=== PATIENT | female | born 1955 | race Caucasian/White ===

== ENCOUNTER 2019-05-06 02:02 | Inpatient (IN) ==
[2019-05-06] MEDS ORDERED: VANCOMYCIN 1 GM/NS 1 GM/250 ML IVPB IV ONE (02:25)
[2019-05-06] MEDS ORDERED: NS 1,000 ML IV ONE ×2 (02:25→06:51)
[2019-05-06] MEDS ORDERED: ZOSYN 4.5 GM in NS 100 ML IV ONE (02:25)
--- NOTE | 2019-05-06 02:26 | PROVIDER DOCUMENTATION ---
HPI-Respiratory General - General Chief Complaint: General Adult Stated Complaint: low o2 sat Time Seen by Provider: 05/06/19 02:16 Source: patient, EMS, [facility] records Allergies/Adverse Reactions: Patient Allergies Allergy/AdvReac Type Severity Reaction Status Date / Time amoxicillin [From Augmentin] Allergy HIVES Verified 05/06/19 04:36 clavulanic acid Allergy HIVES Verified 05/06/19 04:36 [From Augmentin] Sulfa (Sulfonamide Allergy HIVES Verified 05/06/19 04:36 Antibiotics) Home Medications: Home Medication List Medication Instructions Recorded Confirmed Last Taken Type Aspirin [Adult Aspirin Regimen] 81 mg PO DAILY 05/06/19 05/06/19 Unknown History Carvedilol 3.125 mg PO BID 05/06/19 05/06/19 Unknown History Clonazepam [Klonopin] 0.5 mg PO BID 05/06/19 05/06/19 Unknown History Diclofenac 1% Gel [Voltaren 1% Gel] 2 g TOP Q12H PRN PRN 05/06/19 05/06/19 Unknown History Escitalopram [Lexapro] 20 mg PO DAILY 05/06/19 05/06/19 Unknown History Furosemide [Lasix] 20 mg PO DAILY 05/06/19 05/06/19 Unknown History Gabapentin 600 mg PO Q6HR 05/06/19 05/06/19 Unknown History Hydrocodone/Acetaminophen [Naselle 1 tab PO PRN PRN 05/06/19 05/06/19 Unknown History 7.5-325 Tablet] Ipratropium/Albuterol Sulfate 3 ml INH Q6HR 05/06/19 05/06/19 Unknown History [Iprat-Albut 0.5-3(2.5) mg/3 ml] LISINOpril [Prinivil] 5 mg PO DAILY 05/06/19 05/06/19 Unknown History Metformin [Glucophage] 500 mg PO BID 05/06/19 05/06/19 Unknown History Mirtazapine 15 mg PO QHS 05/06/19 05/06/19 Unknown History Montelukast [Singulair] 10 mg PO QHS 05/06/19 05/06/19 Unknown History Ondansetron HCl [Zofran] 4 mg PO Q6-8H PRN PRN 05/06/19 05/06/19 Unknown History Oxybutynin [Ditropan] 5 mg PO BID 05/06/19 05/06/19 Unknown History PRAVAstatin [Pravachol] 20 mg PO QHS 05/06/19 05/06/19 Unknown History Potassium Chloride [Klor-Con M20] 20 meq PO DAILY 05/06/19 05/06/19 Unknown History Promethazine [Phenergan] 25 mg IM Q6-8H PRN PRN MDD 75 05/06/19 05/06/19 Unknown History Zolpidem [Ambien] 10 mg PO QHS 05/06/19 05/06/19 Unknown History - History of Present Illness-Resp Nature of Presenting Problem: Presents to the [facility] from [place]. Per [facility] report patient called EMS and was hypoxic. Per EMS patient was hypoxic and her O2 tubing was found to be kinked. EMS miriam ged out the tubing and her SpO2 bumbped back up. Upon arrival the ED patient was hypotensive the 70 . Daughter works at [employer] and states that yesterday there was concern that she aspirated and they started her on O2 and antibiotics andwas giving her breathing treatments. She states that up until 1 week ago she was living in [place] and she just brought her here to live in the same [facility] she works at. She is a full code. Daughter is unclear of all her PMH but does know that she has been at risk for aspirating in the past and does have CHF. They state that she is acting slightly more altered than normal but she does answer questions normally. She also reports a history of CHF. Review of Systems - Adult - REVIEW OF SYSTEMS - ADULT ROS:: ROS per family Constitutional: reports: see HPI Eyes: reports: no symptoms reported Ears, Nose, Mouth & Throat: reports: no symptoms reported Cardiovascular: reports: no symptoms reported Respiratory: reports: see HPI, cough, shortness of breath, other Gastrointestinal: reports: no symptoms reported Genitourinary: reports: no symptoms reported Musculoskeletal: reports: no symptoms reported Integumentary: reports: no symptoms reported Neurological: reports: no symptoms reported Psychiatric: reports: no symptoms reported Endocrine: reports: no symptoms reported Hematologic/Lymphatic: reports: no symptoms reported Allergic/Immunologic: reports: no symptoms reported All Other Systems: Reviewed and Negative Past History - Adult - PAST MEDICAL HISTORY-ADULT Review of Records: denies: Old Records Reviewed (no records in EMR) Cardiovascular: reports: CHF, HTN, hyperlipidemia Respiratory: reports: COPD Gastrointestinal: reports: GERD Neurological: reports: Seizures/Epilepsy, other (dysthymic disorder) Psychiatric: reports: anxiety, other (insomnia) Endocrine/Immune: reports: Diabetes Diabetes Type: Type 2 - PRIOR SURGERIES/PROCEDURES Surgical/Procedure History: reports: hysterectomy - FAMILY HISTORY Family History: other (non contributory due to age) - SOCIAL HISTORY Smoking: cigarettes Substance Use: none/never Alcohol Use Frequency: never Living Situation: care facility Physical Exam-General - CONSTITUTIONAL General Appearance: alert, anxious, other (chronically ill appearing, older than stated age) - EYES Eyes: PERRL/EOMI - HEAD, EARS, NOSE, MOUTH & THROAT HENMT: normocephalic/atraumatic - NECK Neck: supple, normal inspection - RESPIRATORY Respiratory: no respiratory distress, decreased breath sounds, accessory muscle use, crackles, increased rate - CARDIOVASCULAR Cardiovascular: normal peripheral pulses, no murmur, tachycardia - GASTROINTESTINAL (ABDOMEN) Abdominal Exam: normal bowel sounds, non tender, soft - MUSCULOSKELETAL Back Exam: normal inspection Extremity: normal inspection, no pedal edema - SKIN Integumentary: warm/dry, pallor - NEUROLOGIC Neurologic: grossly normal - PSYCHIATRIC Psych/Mental Status: normal mood/affect, oriented x 3 Progress - PLAN OF CARE/RESULTS Progress/Plan/Lab Results: Vital Signs - 8 hr 05/06/19 02:10 Temperature 99.1 F Pulse Rate 104 H Respiratory Rate 28 H Blood Pressure 76/44 O2 Sat by Pulse Oximetry 100 05/06/19 05:00 Influenza Screen - Final Nasopharyngeal Laboratory Results - last 24 hr 05/06/19 05/06/19 05/06/19 00:50 02:35 03:50 WBC 7.88 RBC 3.07 L Hgb 9.2 L Hct 28.8 L MCV 93.8 MCH 30.0 MCHC 31.9 L RDW Std Deviation 14.4 Plt Count 185 MPV 10.3 Immature Gran % (Auto) 7.4 H Neut % (Auto) 58.5 Lymph % (Auto) 14.3 L Kay % (Auto) 19.4 H Eos % (Auto) 0.3 Baso % (Auto) 0.1 Immature Gran # (Auto) 0.58 H Neut # (Auto) 4.61 Lymph # (Auto) 1.13 L Kay # (Auto) 1.53 H Eos # (Auto) 0.02 Baso # (Auto) 0.01 Specimen Type ARTERIAL Sample Site R RADIAL pH 7.46 H pCO2 31 L pO2 50 L HCO3 23.9 Base Excess -1.1 Oxyhemoglobin 88.9 L* ABG O2 Sat (Calculated) 14.5 L ABG O2 Saturation 90.7 L ABG Carboxyhemoglobin 1.30 ABG Methemoglobin 0.7 Hua Test YES A-a O2 Difference 61.0 Total Hemoglobin 11.6 Lactate 4.10 H* Blood Gas Modality CANNULA FiO2 % 21.0 Sodium Potassium Chloride Carbon Dioxide Anion Gap BUN Creatinine Estimated GFR/1.73 m2 BUN/Creatinine Ratio Glucose Calculated Osmolality Calcium Total Bilirubin AST ALT Alkaline Phosphatase Troponin T High Sens Okk-T-Pvgajbgpvad Pept Total Protein Albumin Globulin Albumin/Globulin Ratio Plasma Lactate Urine Source CATH Urine Color YELLOW Urine Turbidity CLEAR Urine pH 5.5 Ur Specific Harrison 1.012 Urine Protein 50 A Ur Glucose (Stick) NEGATIVE Ur Ketones (Stick) NEGATIVE Urine Blood TRACE A Urine Nitrite NEGATIVE Urine Bilirubin NEGATIVE Urobilinogen Dipstick NORMAL Urine Leukocytes SMALL A Urine WBC (Auto) 10-20 A Urine RBC (Auto) <10 U Epithel Cells (Auto) <10 Urine Bacteria (Auto) 4+ 05/06/19 05/06/19 05/06/19 03:50 03:50 03:50 WBC RBC Hgb Hct MCV MCH MCHC RDW Std Deviation Plt Count MPV Immature Gran % (Auto) Neut % (Auto) Lymph % (Auto) Kay % (Auto) Eos % (Auto) Baso % (Auto) Immature Gran # (Auto) Neut # (Auto) Lymph # (Auto) Kay # (Auto) Eos # (Auto) Baso # (Auto) Specimen Type Sample Site pH pCO2 pO2 HCO3 Base Excess Oxyhemoglobin ABG O2 Sat (Calculated) ABG O2 Saturation ABG Carboxyhemoglobin ABG Methemoglobin Hua Test A-a O2 Difference Total Hemoglobin Lactate Blood Gas Modality FiO2 % Sodium 132 L Potassium 5.2 H Chloride 89 L Carbon Dioxide 22 L Anion Gap 21 BUN 53 H Creatinine 3.3 H Estimated GFR/1.73 m2 14 BUN/Creatinine Ratio 16 Glucose 137 H Calculated Osmolality 281 Calcium 7.5 L Total Bilirubin 0.60 AST 30 ALT 65 H Alkaline Phosphatase 57 Troponin T High Sens Jog-Y-Ebqevatxnxj Pept 93163 H Total Protein 6.1 L Albumin 3.2 L Globulin 2.9 Albumin/Globulin Ratio 1.1 Plasma Lactate 4.8 H* Urine Source Urine Color Urine Turbidity Urine pH Ur Specific Harrison Urine Protein Ur Glucose (Stick) Ur Ketones (Stick) Urine Blood Urine Nitrite Urine Bilirubin Urobilinogen Dipstick Urine Leukocytes Urine WBC (Auto) Urine RBC (Auto) U Epithel Cells (Auto) Urine Bacteria (Auto) 05/06/19 03:50 WBC RBC Hgb Hct MCV MCH MCHC RDW Std Deviation Plt Count MPV Immature Gran % (Auto) Neut % (Auto) Lymph % (Auto) Kay % (Auto) Eos % (Auto) Baso % (Auto) Immature Gran # (Auto) Neut # (Auto) Lymph # (Auto) Kay # (Auto) Eos # (Auto) Baso # (Auto) Specimen Type Sample Site pH pCO2 pO2 HCO3 Base Excess Oxyhemoglobin ABG O2 Sat (Calculated) ABG O2 Saturation ABG Carboxyhemoglobin ABG Methemoglobin Hua Test A-a O2 Difference Total Hemoglobin Lactate Blood Gas Modality FiO2 % Sodium Potassium Chloride Carbon Dioxide Anion Gap BUN Creatinine Estimated GFR/1.73 m2 BUN/Creatinine Ratio Glucose Calculated Osmolality Calcium Total Bilirubin AST ALT Alkaline Phosphatase Troponin T High Sens 48 H Dzg-S-Acuhjmubylv Pept Total Protein Albumin Globulin Albumin/Globulin Ratio Plasma Lactate Urine Source Urine Color Urine Turbidity Urine pH Ur Specific Harrison Urine Protein Ur Glucose (Stick) Ur Ketones (Stick) Urine Blood Urine Nitrite Urine Bilirubin Urobilinogen Dipstick Urine Leukocytes Urine WBC (Auto) Urine RBC (Auto) U Epithel Cells (Auto) Urine Bacteria (Auto) Orders Category Date Time Status Sanchez Cath Insertion ORDERED Care 05/06/19 05:01 Active CHEST-PORTABLE [RAD] Stat Exams 05/06/19 02:20 Taken ABG [RESP] Routine Lab 05/06/19 02:35 Completed BLOOD CULTURE [BLDCUL] Stat Lab 05/06/19 04:58 Received CBC WITH ELECTRONIC DIFF [HEME] Stat Lab 05/06/19 03:50 Completed COMPREHENSIVE METABOLIC PANEL [CHEM] Stat Lab 05/06/19 03:50 Completed INFLUENZA SCREEN A/B Stat Lab 05/06/19 05:00 Completed LACTATE, PLASMA [CHEM] Stat Lab 05/06/19 03:50 Received PRO B-NATRIURETIC PEPTIDE Stat Lab 05/06/19 03:50 Completed TROPONIN T HIGH SENSITIVITY Stat Lab 05/06/19 03:50 Completed URINALYSIS W/POSS RFLX CULT [URINALYSIS] Stat Lab 05/06/19 00:50 Completed URINE CULTURE [RM] Routine Lab 05/06/19 05:38 Ordered 0.9% Sodium Chloride Inj [Ns] 1,000 ml Med 05/06/19 02:25 Discontinued IV 999 mls/hr Acetaminophen [Tylenol] Med 05/06/19 05:37 Once 1,000 mg PO NOW ONE Piperacillin/Tazobactam [Zosyn] 4.5 gm Med 05/06/19 02:25 Discontinued 0.9% Sodium Chloride Inj [Ns] 100 ml IV NOW Vancomycin 1 gm/Ns Med 05/06/19 02:25 Discontinued 1 gm in 250 ml IV NOW Patient hypotensive upon arrival but states she always runs in the 90s. SHe mei es a lot of pain and sedating medications which likely causes her risk of hypotension and risk for aspiration. She does appear to have an infiltrate in the left lower lobe, and a UTI. Her BNP is elevated to 10k but she is also septic with tachycardia, tachypnea, and hypotension and fever so will give boluses and monitor SpO2. Will require admission. Spoke to Dr Diaz superintendent transmission for hospitalist who accepted patient for admission. Further orders to be placed per his team. Result Diagrams: 05/06/19 03:50 05/06/19 03:50 - XRAY 1 XRAY Study: Chest (left lower lobe infiltrate) - CONSULTS/PCP/HOSPITALIST Notification #1 *Consult/PCP/Hospitalist*: Dr Diaz Time Discussed: 05:38 Consult Disposition: Will see in ED, Admit Departure - Departure Date of Disposition Decision: 05/06/19 Time of Disposition Decision: 05:38 DIAGNOSIS: Pneumonia, Hypoxia, UTI (urinary tract infection), Hypotension, Congestive heart failure, Sepsis, Polypharmacy Disposition: ADMITTED INPATIENT 09 Certified Medical Emergency: Emergent Condition: Critical Referrals and Follow-Ups: Birgit Augustin MD [Primary Care Provider] - - Critical Care Note This patient required my direct & personal management of CC.: Yes Total Time (mins): 35 Critical Care Statement: This patient required my direct personal management to treat or rule out processes, the absence of which, could potentiallly result in sudden, clinically significant life or limb threatening deterioration. Attestation - Physician/ MESHA Attestation Patient care was provided by Advanced Practice Provider:: No The physician spent face to face time with patient:: Yes Advanced Practice Provider documentation review:: Supervising physician onsite and consulted in the evaluation and care of this patient. The physician did have a face to face encounter with the patient.
[2019-05-06 02:41] LABS: ALLEN TEST YES; BE -1.1 mmoll (-3.0-3.0); BLOOD TYPE ARTERIAL; HCO3-(ACT) 23.9 mmoll (20.0-26.0); METHB 0.7 % (0.0-1.5); O2(CT) 14.5 mL/dL (15.0-23.0); PCO2(98.6) 31 mmHg (35-45); PO2(98.6) 50 mmHg (60-100); SAMPLE BLOOD; SAO2 90.7 % (95.0-100.0); THB 11.6 g/dL (11.5-17.4); pH(98.6) 7.46 (7.35-7.45)
[2019-05-06 02:45] LABS: MODALITY CANNULA; O2HB 88.9 % (95.0-99.0)
[2019-05-06 04:04] LABS: BASO# 0.01 X1000 (0.0-0.2); BASO% 0.1 % (0.0-0.8); EOS# 0.02 X1000 (0.0-0.7); EOS% 0.3 % (0.0-10.0); HEMATOCRIT 28.8 % (37.0-47.0); HEMOGLOBIN 9.2 g/dL (12.0-16.0); IMM GRAN# 0.58 X1000 (0.0-0.04); IMM GRAN% 7.4 % (0.0-0.5); LYMPH# 1.13 X1000 (1.2-3.4); LYMPH% 14.3 % (20.5-51.1); MCHC 31.9 g/dL (33-37); MCV 93.8 FL (81-99); MONO# 1.53 X1000 (0.11-0.59); MONO% 19.4 % (1.7-9.3); MPV 10.3 FL (7.4-10.4); NEUT# 4.61 X1000 (1.4-6.5); NEUT% 58.5 % (42.2-75.2); PLT 185 X1000 (130-400); RBC 3.07 XMIL (4.2-5.4); RDW 14.4 % (11.5-14.5); WBC 7.88 X1000 (4.8-10.8)
[2019-05-06 05:25] LABS: URINE SOURCE CATH
[2019-05-06 05:30] LABS: BILIRUBIN URINE NEGATIVE (NEGATIVE); BLOOD URINE TRACE (NEGATIVE); COLOR YELLOW; GLUCOSE URINE NEGATIVE (NEGATIVE); KETONE URINE NEGATIVE (NEGATIVE); LEUKOCYTES URINE SMALL (NEGATIVE); NITRITE URINE NEGATIVE (NEGATIVE); PH URINE 5.5; PROTEIN URINE 50 mg/dL (NEGATIVE); SP GRAVITY URINE 1.012; TURBIDITY URINE CLEAR (CLEAR); UROBILINOGEN URINE NORMAL (NORMAL)
[2019-05-06 05:34] LABS: UR EPITHELIAL CELLS <10 /HPF (<10); URINE BACTERIA 4+ /HPF; URINE RBC <10 /HPF (<10)
[2019-05-06 05:35] LABS: ALB/GLOB RATIO 1.1; ALBUMIN 3.2 g/dL (3.5-5.0); CALCIUM 7.5 mg/dL (8.8-10.2); CREATININE 3.3 mg/dL (0.5-0.9); POTASSIUM 5.2 mmol/L (3.5-5.1); TOTAL BILIRUBIN 0.6 mg/dL (0.20-1.00); TOTAL PROTEIN 6.1 g/dL (6.3-8.3)
[2019-05-06] MEDS ORDERED: TYLENOL PO ONE (05:37)
[2019-05-06 06:13] LABS: UR AMPHETAMINES QUAL NONE DETECTED (NONE DETECT); UR BARBITUATES QUAL NONE DETECTED (NONE DETECT); UR BENZODIAZEPIN QUAL NONE DETECTED (NONE DETECT); UR CANNABINOIDS QUAL NONE DETECTED (NONE DETECT); UR COCAINE QUAL NONE DETECTED (NONE DETECT); UR METHADONE QUAL NONE DETECTED (NONE DETECT); UR OPIATES QUAL PRESUMPTIVE POSITIVE (NONE DETECT); UR OXYCODONE QUAL NONE DETECTED (NONE DETECT); UR PCP QUAL NONE DETECTED (NONE DETECT)
[2019-05-06] MEDS: TAMIFLU PO SCH ×3 (06:18→21:12)
[2019-05-06] MEDS ORDERED: ZOFRAN IV PRN (06:52)
--- NOTE | 2019-05-06 07:21 | HISTORY AND PHYSICAL ---
CHIEF COMPLAINT: Low O2 sat. HISTORY OF PRESENT ILLNESS: This is a 63-year-old female who came in from the residential. Apparently the residential called EMS related to hypoxia. Her 02 tubing was found to be kinked. EMS changed out the tubing and her SP02 came back up. She was hypotensive in the 70s on arrival in the ER. Apparently yesterday, there was some concern she had aspirated. They were starting her on breathing treatments. Until a week ago, she was living in [place] and they brought her to live in the same residential that she works at. The patient is a full code. The daughter was unclear of all of her past medical history but does know that she had been a risk for aspirating. She does have a history of congestive heart failure. The patient was altered upon arrival. She, according to the ER charting has a history that also contains hypertension, hyperlipidemia, COPD, GERD, insomnia, anxiety, diabetes type 2 and seizure disorder although this could not be confirmed with the patient as she is oriented only to person. Laboratory data and chest x-ray were obtained in the emergency room. She is influenza B positive as well as having a left lower lobe pneumonia. She will be admitted to ICU for further evaluation and treatment. PAST MEDICAL HISTORY: See HPI. PREVIOUS SURGICAL HISTORY: Hysterectomy. FAMILY HISTORY: This could not be obtained. SOCIAL HISTORY: I believe she has a history of cigarettes. No alcohol. No illicit drugs. She lives at a residential. ALLERGIES: To amoxicillin causing hives. Augmentin causing hives and sulfa antibiotics causing hives. HOME MEDICATIONS: 1. Diclofenac gel. 2. Furosemide 20 mg p.o. daily. 3. Neurontin 600 mg p.o. q.6. 4. [place] 7.5 p.r.n. 5. Lisinopril 5 mg p.o. daily. 6. Metformin 500 mg p.o. b.i.d. 7. Mirtazapine 15 mg p.o. at bedtime. 8. Singulair 10 mg p.o. at bedtime. 9. Zofran 4 mg p.o. q.6-8 p.r.n. 10.Ditropan 5 mg p.o. b.i.d. 11.Potassium chloride 20 mEq p.o. daily. 12.Phenergan 25 mg q.6-8 p.r.n. 13.Ambien 10 mg p.o. at bedtime. 14.Aspirin 81 mg p.o. daily. 15.Carvedilol 3.125 mg p.o. b.i.d. 16.Klonopin 0.5 mg p.o. b.i.d. 17.Lexapro 20 mg p.o. daily. 18.DuoNeb q.6 hours. 19.Pravastatin 20 mg p.o. at bedtime. REVIEW OF SYSTEMS: This cannot be fully obtained related to patient's mentation. PHYSICAL EXAMINATION: VITAL SIGNS: Temperature 99.1 degrees, pulse 104, respirations 28, blood pressure 76/44, oxygen saturation 100% on 4 liters nasal cannula. GENERAL: 63-year-old female chronically ill-appearing, looks older than stated age, lying in the ER stretcher. She is oriented only to person, in no acute distress. HEENT: Head is atraumatic, normocephalic. Pupils equal, round and reactive to light. Extraocular eye movements intact. Sclerae anicteric. Conjunctivae pale. Oral mucosa is moist. NECK: Supple. Trachea is midline. No cervical lymphadenopathy. No JVD. CARDIAC: S1, S2 appreciated. No murmurs, gallops, rubs. LUNGS: Crepitations noted throughout bilateral lung waterman, diminished. She is tachypneic. No rhonchi, wheezes, rales. Symmetric rise and fall of respirations. ABDOMEN: Soft, nondistended, nontender. Bowel sounds present in all 4 quadrants. Normoactive. No pulsatile mass. No organomegaly. EXTREMITIES: No cyanosis, clubbing or edema. 1+ pedal pulses bilaterally. GENITOURINARY: No bladder distention. Patient voids, otherwise deferred. NEUROLOGICAL: Oriented only to person. No focal motor deficits. Otherwise nonfocal examination. DIAGNOSTIC DATA: Chest x-ray shows a left lower lobe pneumonia. LABORATORY DATA: WBC 7.88, hemoglobin 9.2, hematocrit 28.8, platelet count 185,000. ABG, pH 7.46, PCO2 31, PO2 50, bicarb 23.9. Sodium 132, potassium 5.2, chloride 89, carbon dioxide 22, BUN 53, creatinine 3.3, glucose 137. Plasma lactate 4.8. Urine leuko esterase is positive 10-20 WBCs, 4+ bacteria. ASSESSMENT AND PLAN: 1. Pneumonia. 2. Influenza B. 3. Urinary tract infection. 4. Acute hypoxic respiratory failure. 5. Acute kidney injury. 6. Congestive heart failure. 7. Hypotension. 8. History of hypertension. 9. Diabetes mellitus type 2. PLAN: Place patient in the ICU. Start Levophed if necessary. Sepsis protocol has been initiated. She was given fluids in the emergency room, continue at 60 mL an hour. Will be mindful not to overload the patient and she apparently does have a history of congestive heart failure. Will not continue Lasix, antihypertensives, metformin at this time. We will place on sliding scale insulin and fingerstick blood sugars. We will start Tamiflu. Sanchez catheter. Bedrest with physical therapy. Recheck laboratory data. Place the patient on Zosyn as she had a dose in the emergency room and did not have any negative effects despite having a previous history of allergy to amoxicillin. We will also place her on Zyvox 600 mg IV q.12 hours. Further recommendations per the patient's clinical course. Dictated by KELBY Swain for Farzad Diaz MD I have performed a face to face diagnostic evaluation. Labs/xrays- reviewed. Exam: Chest- rhonchi, CV- regular. A/P- Pneumonia, Influenza B- Admit, check blood cultures, IV ABX, Tamiflu. Dr. Diaz cc: KELBY Swain MD [facility]
--- NOTE | 2019-05-06 07:31 | Diag Imaging Result Doc PS360 ---
EXAM: CHEST-PORTABLE HISTORY: sob TECHNIQUE: Single view COMPARISON: No comparison films FINDINGS: There are infiltrates and atelectasis in the left lung base with a small left pleural effusion. Heart is borderline mildly prominent. Mild vascular distention. The patient is rotated to the right. IMPRESSION: Infiltrates in the left base with atelectasis and small left pleural effusion. Follow-up PA and lateral recommended. Electronically signed by Aron Cadena 05/06/2019 7:29 AM
[2019-05-06] MEDS: HEPARIN SUBQ SCH ×3 (08:13→23:55)
[2019-05-06] MEDS ORDERED: TAMIFLU PO SCH (09:00)
[2019-05-06] MEDS ORDERED: ZOSYN 2.25 GM in NS 50 ML IV SCH (09:00)
[2019-05-06] MEDS: LEVOPHED 8 MG in D5 1/2 NS 250 ML IV SCH (09:06)
[2019-05-06] MEDS: ZYVOX 600 MG/D5W 600 MG/300 ML IVPB IV SCH ×2 (09:06→21:10)
[2019-05-06] MEDS: NS 1,000 ML IV SCH (09:07)
[2019-05-06] MEDS: HUMALOG SUBQ SCH ×4 (10:10→21:11)
[2019-05-06] MEDS: COREG PO SCH ×2 (10:11→21:11)
[2019-05-06] MEDS: KLONOPIN PO SCH ×2 (10:11→21:12)
[2019-05-06] MEDS: ASPIRIN EC PO SCH (10:11)
[2019-05-06] MEDS: LEXAPRO PO SCH (10:12)
--- NOTE | 2019-05-06 14:29 | PROGRESS NOTE ---
DATE: 05/06/2019 SUBJECTIVE: Patient has no major complaints. OBJECTIVE: Blood pressure is 114/65, heart rate of 82, respiratory rate is 17, 98%--I think she is on a non-rebreather, T-max 100.8 degrees.Cardiovascular: Soft S1-S2. Pulmonary: She has diffuse rhonchi, a lot of that is upper airway noise, but she is moving air throughout. GI: Soft, nontender, nondistended. Bowel sounds are positive. LABORATORY DATA: I do not have any new data since 6 a.m. except her lactate has come down to 2.6. Her proBNP is very high, but she also has a creatinine of 3.3. PROBLEM LIST: 1. Acute hypoxic respiratory failure due to pulmonary edema, pneumonia, influenza B. She is still on very high dose oxygen and will repeat her ABG and follow. I think also we probably will need a Pulmonary consult because I think her risk of decompensation is high. I am not sure if there is an aspiration issue. 2. Acute kidney injury or possibly acute on chronic, it is difficult to tell. We will continue gentle hydration. She is on vasopressors which we are titrating off. 3. Congestive heart failure. Reportedly, she has a history of congestive heart failure. We will get an echo because we have no data on her previously, so I do not really have any baseline information. She is on Coreg which suggests she possibly does have congestive heart failure. We will be cautious with fluid resuscitation. 4. Putative pneumonia. She is on Zosyn and Zyvox. We will continue those for the time being. She is allergic to amoxicillin and Augmentin, I may switch her to cefepime and follow. Get a speech evaluation and proton pump inhibitor for GERD prophylaxis, and follow. This is a 32 minute critical care note septic shock, acute respiratory failure. Prognosis is still very guarded. cc: Jone Richard MD
[2019-05-06] MEDS: DUONEB (A & A) INH SCH ×3 (14:50→21:28)
[2019-05-06 15:04] LABS: ALLEN TEST YES; BLOOD TYPE ARTERIAL; HCO3-(ACT) 24.1 mmoll (20.0-26.0); METHB 0.3 % (0.0-1.5); O2(CT) 16.9 mL/dL (15.0-23.0); O2HB 96.4 % (95.0-99.0); PCO2(98.6) 42 mmHg (35-45); PO2(98.6) 91 mmHg (60-100); SAMPLE BLOOD; SAO2 97.4 % (95.0-100.0); THB 12.4 g/dL (11.5-17.4); pH(98.6) 7.37 (7.35-7.45)
[2019-05-06 15:05] LABS: MODALITY NRB
[2019-05-06] MEDS: MAXIPIME 1 GM in NS 50 ML IV SCH (16:12)
[2019-05-06] MEDS: MUCOMYST 20% PO SCH ×2 (16:13→16:43)
[2019-05-06] MEDS: PROTONIX IV SCH (16:15)
[2019-05-06 17:30] LABS: UR CREAT RANDOM 33.6 mg/dL (11-20); UR PROT RANDOM 36.4 mg/dL
[2019-05-06] MEDS ORDERED: NUBAIN IV PRN (17:39)
[2019-05-06] MEDS: OFIRMEV 1000 MG/ISOTONIC SOLN 1,000 MG/100 ML BOTTLE IV PRN (17:56)
--- NOTE | 2019-05-06 19:52 | PULMONOLOGY CONSULTATION ---
DATE: 05/06/2019 REQUESTING CLINICIAN: Dr. Cody Richard. REASON FOR CONSULTATION: Pneumonia. HISTORY OF PRESENT ILLNESS: Ms. Yen is a 63-year-old white female with diabetes mellitus, ongoing tobacco use, who was recently living in another city. She was recently brought [facility] where her daughter works. The patient had an episode of aspiration yesterday, and she has had history of aspiration in the past. She was brought to the emergency room for evaluation. She had evidence of acute hypoxemic respiratory failure, left lower lobe pneumonia, and she was flu swab-positive. PAST MEDICAL HISTORY: 1. History of aspiration. 2. Tobacco use up until a few days prior to admission. Family denies history of COPD. 3. Diabetes mellitus. 4. Anxiety disorder. 5. Possible seizure disorder. 6. Peripheral neuropathy. 7. Anxiety/depressive disorder. SOCIAL HISTORY: The patient was [facility] the [facility] as per above. She was smoking prior to admission. FAMILY HISTORY: Noncontributory to the current presentation. REVIEW OF SYSTEMS: Notable for cough, shortness of breath, sputum production, generalized aches and pains. PHYSICAL EXAMINATION: Physical exam reveals an overweight white female resting comfortably. She does have audible rhonchi with limited air flow on cough. Objective: Maximum temperature during this hospitalization is 100.8 degrees, blood pressure 136/88, heart rate 113, respiratory rate 21, oxygen saturation 96% on nonrebreather.HEENT: Pupils are equal and reactive. Oropharynx appears clear. Neck is supple. Chest reveals rhonchi bilaterally. Cardiac exam: S1, S2. Abdomen is soft. Extremities reveal trace edema. LABORATORY DATA: Sputum culture is pending. Nasal swab is positive for influenza B. Arterial blood gas reveals a pH 7.37, pCO2 of 42, pO2 of 91 with a lactate of 2.4. Sodium 132, potassium 5.2, chloride 89, bicarbonate 22, BUN 53, creatinine 3.3. Lactate in the emergency room 4.8. Current lactate 2.6. DIAGNOSTIC DATA: Chest x-ray reveals left basilar pneumonia. IMPRESSION: A 63-year-old with: 1. Influenza B. 2. Aspiration pneumonia, with grossly purulent secretions suctioned from her trachea. 3. Diabetes mellitus. 4. Lactic acidosis, which is resolving. 5. Hypoxemic respiratory failure. DISCUSSION: A 63-year-old with problems outlined above. Her purulent sputum and x-ray findings are most consistent with an aspiration event; however, she is also influenza B positive and may have a coinfection. RECOMMENDATIONS: 1. Agree with admission to the ICU. 2. Continue antibiotics covering institution-acquired pneumonias. 3. Continue Tamiflu for 5 days. 4. Close ICU monitoring. She is at risk for progressive respiratory failure requiring intubation. cc: Joe Vieyra MD
[2019-05-06] MEDS: PRAVACHOL PO SCH (21:12)
[2019-05-06] MEDS: MUCOMYST 20% INH SCH (21:28)
[2019-05-07] MEDS: OFIRMEV 1000 MG/ISOTONIC SOLN 1,000 MG/100 ML BOTTLE IV PRN ×2 (00:17→10:00)
[2019-05-07] MEDS ORDERED: LANOXIN IV ONE (00:46)
[2019-05-07] MEDS ORDERED: LOPRESSOR IV ONE (00:48)
[2019-05-07] MEDS: NUBAIN IV PRN ×2 (01:32→05:46)
[2019-05-07] MEDS: NS 1,000 ML IV SCH ×3 (02:44→22:44)
[2019-05-07] MEDS: DUONEB (A & A) INH SCH ×4 (03:26→21:40)
[2019-05-07] MEDS: MAXIPIME 1 GM in NS 50 ML IV SCH ×2 (03:27→15:07)
[2019-05-07 04:35] LABS: ALLEN TEST YES; BE 1.8 mmoll (-3.0-3.0); BLOOD TYPE ARTERIAL; HCO3-(ACT) 26.3 mmoll (20.0-26.0); METHB 1.3 % (0.0-1.5); O2(CT) 15.4 mL/dL (15.0-23.0); O2HB 95.8 % (95.0-99.0); PCO2(98.6) 48 mmHg (35-45); PO2(98.6) 111 mmHg (60-100); SAMPLE BLOOD; SAO2 97.9 % (95.0-100.0); THB 11.3 g/dL (11.5-17.4); pH(98.6) 7.37 (7.35-7.45)
[2019-05-07 04:36] LABS: MODALITY PRB
[2019-05-07] MEDS: HEPARIN SUBQ SCH ×3 (06:00→23:32)
[2019-05-07] MEDS: HUMALOG SUBQ SCH ×4 (06:00→21:26)
[2019-05-07 06:33] LABS: BASO# 0.02 X1000 (0.0-0.2); BASO% 0.2 % (0.0-0.8); EOS# 0.01 X1000 (0.0-0.7); EOS% 0.1 % (0.0-10.0); HEMATOCRIT 31.9 % (37.0-47.0); HEMOGLOBIN 10.2 g/dL (12.0-16.0); IMM GRAN# 0.16 X1000 (0.0-0.04); IMM GRAN% 1.3 % (0.0-0.5); LYMPH# 0.99 X1000 (1.2-3.4); LYMPH% 8.3 % (20.5-51.1); MCV 93.8 FL (81-99); MONO# 1.48 X1000 (0.11-0.59); MONO% 12.5 % (1.7-9.3); MPV 10.3 FL (7.4-10.4); NEUT% 77.6 % (42.2-75.2); PLT 205 X1000 (130-400); WBC 11.86 X1000 (4.8-10.8)
[2019-05-07 06:57] LABS: CALCIUM 7.5 mg/dL (8.8-10.2); CREATININE 1.2 mg/dL (0.5-0.9); POTASSIUM 3.5 mmol/L (3.5-5.1)
[2019-05-07 08:01] LABS: LYMPHS 8 % (21-51); MONO 10 % (1-9); SEGS 82 % (42-75)
[2019-05-07] MEDS: ZYVOX 600 MG/D5W 600 MG/300 ML IVPB IV SCH (08:09)
[2019-05-07] MEDS: LEXAPRO PO SCH (08:09)
[2019-05-07] MEDS: ASPIRIN EC PO SCH (08:09)
[2019-05-07] MEDS: LEVOPHED 8 MG in D5 1/2 NS 250 ML IV SCH (08:10)
[2019-05-07] MEDS: KLONOPIN PO SCH ×2 (08:10→21:25)
[2019-05-07] MEDS: TAMIFLU PO SCH ×2 (08:10→21:26)
[2019-05-07] MEDS: COREG PO SCH ×2 (08:10→21:27)
[2019-05-07] MEDS: MUCOMYST 20% INH SCH ×2 (10:20→21:40)
--- NOTE | 2019-05-07 10:30 | ECHO REPORT ---
ORDER DATE: 05/06/2019 MEASUREMENTS: 1. Left ventricular internal diameter in diastole 4.9. 2. Septal thickness 0.9. 3. Aortic root 2.7. 4. Left atrium 3.8. SUMMARY: 1. Technically difficult study due to limited acoustic window quality. 2. Aortic valve is not well imaged but appears to open adequately on 2-dimensional images. The peak gradient across the aortic valve is less than 10 mmHg. Mitral and tricuspid valves are without evidence of structural abnormality with trace tricuspid regurgitation. Pulmonic valve is not seen. The aortic root is normal in size. 3. Normal left ventricular dimensions suggested. Estimated left ejection fraction appears to be at least 55%. No obvious regional wall motion abnormality can be appreciated. Left atrium appears mildly enlarged on 2-dimensional images. Right ventricle appears subjectively enlarged. Right atrium is grossly normal in size. 4. No pericardial effusion. 5. Appearance of inferior vena cava suggests elevated central venous pressure. CONCLUSION: 1. Technically difficult study. 2. No significant valvular abnormality appreciated. 3. Estimated ejection fraction appears to be at least 55%. 4. Mild left atrial enlargement. 5. Right ventricular enlargement suggested. cc: MD Jone Disla MD
[2019-05-07] MEDS ORDERED: VANCOMYCIN IV PER PHARMACY MISC SCH (13:00)
[2019-05-07] MEDS ORDERED: VANCOMYCIN 1,500 MG in NS 250 ML IV SCH (14:00)
--- NOTE | 2019-05-07 14:53 | PROGRESS NOTE ---
DATE: 05/07/2019 SUBJECTIVE: She is more awake. She seems a little bit more agitated though too. OBJECTIVE: Vital Signs: Blood pressure is 107/52, heart rate 67, respiratory rate of 18, temperature is 98.4 degrees. Cardiovascular: Regular rate and rhythm. Pulmonary: Bilateral breath sounds. Clear to auscultation. GI: Soft, nontender, nondistended. Bowel sounds are positive. LABORATORY DATA: White count 11, hemoglobin and hematocrit 10 and 31, platelets 205,000. PH 7.37, pCO2 of 48, PO2 of 111. Creatinine is down to 1.2, which is a remarkable recovery. I was not anticipating that. PROBLEM LIST: 1. Acute hypoxic respiratory failure due to pulmonary edema, pneumonia, influenza. We will wean oxygen. She is still on fairly decent oxygen requirement, but I think she could probably be weaned a bit further. 2. Acute kidney injury, which is likely due to hypotension. Will continue intravenous fluids for the time being. She does not have severe heart failure. She does not have systolic heart failure. She may have diastolic, although the echocardiogram does not describe that, so I think she can tolerate getting some more fluids. 3. Pneumonia with positive blood cultures for methicillin-resistant staphylococcus aureus, 1/. I will switch her back to vancomycin because the Zyvox will not be sufficient for that purpose. She is also on cefepime. I am going to leave her on that for the time being until we rule out pneumonia completely. 4. Urinary tract infection. She is on cefepime. 5. Disposition. Pending her clinical status. I am going to advance her diet, and will see how she does. cc: Jone Richard MD
[2019-05-07] MEDS: PROTONIX IV SCH (15:07)
[2019-05-07] MEDS: NORCO-5 PO PRN ×2 (15:07→21:25)
--- NOTE | 2019-05-07 15:19 | PULMONOLOGY PROGRESS NOTE ---
DATE: 05/07/2019 SUBJECTIVE: The patient is awake, alert, and conversant. She has a weak cough which sounds productive. OBJECTIVE: Vital Signs: Maximum temperature in the last 24 hours is 100.0 degrees, blood pressure 123/61, heart rate 61, respiratory rate 18, oxygen saturation 98% on partial rebreather. HEENT: Pupils are equal and reactive. Oropharynx appears clear. Neck: Supple. Chest: Chest reveals rhonchi bilaterally. Cardiac Exam: S1, S2. Regular rate. Abdomen: Soft. Extremities: Reveal trace edema. LABORATORIES: One blood culture is growing gram-positive cocci. Urine culture is growing a gram- negative eparl. Sputum culture is pending. White blood count 11.86, hemoglobin 10.2, platelet count 205,000. Sodium 139, potassium 3.5, chloride 99, bicarbonate 26, BUN 35, creatinine 1.2, glucose 139. IMAGING: Chest x-ray has been ordered for tomorrow morning. IMPRESSION: A 63-year-old with 1. Influenza. 2. Aspiration pneumonia. 3. Acute hypoxemic respiratory failure. 4. Diabetes mellitus. 5. Urinary tract infection. PLAN: 1. Continue current broad-spectrum antibiotics for bacteria/aspiration and urinary tract infection. 2. Complete Tamiflu for influenza. 3. Cautious p.o. intake given recent aspiration. 4. Continue bronchial hygiene. cc: Joe Vieyra MD
[2019-05-07] MEDS: TYLENOL PO PRN (21:24)
[2019-05-07] MEDS: PRAVACHOL PO SCH (21:26)
[2019-05-08] MEDS: AMBIEN PO PRN ×2 (01:55→21:19)
[2019-05-08] MEDS: MAXIPIME 1 GM in NS 50 ML IV SCH (03:30)
[2019-05-08] MEDS: DUONEB (A & A) INH SCH ×4 (04:32→21:33)
[2019-05-08] MEDS: NORCO-5 PO PRN ×3 (04:58→21:53)
[2019-05-08 05:00] LABS: ALLEN TEST YES; BE 3.4 mmoll (-3.0-3.0); BLOOD TYPE ARTERIAL; HCO3-(ACT) 27.6 mmoll (20.0-26.0); METHB 0.6 % (0.0-1.5); O2(CT) 14.2 mL/dL (15.0-23.0); O2HB 97.2 % (95.0-99.0); PCO2(98.6) 32 mmHg (35-45); PO2(98.6) 170 mmHg (60-100); SAMPLE BLOOD; SAO2 98.6 % (95.0-100.0); THB 10.1 g/dL (11.5-17.4); pH(98.6) 7.52 (7.35-7.45)
[2019-05-08 05:01] LABS: MODALITY CANNULA
[2019-05-08] MEDS: NS 1,000 ML IV SCH ×2 (05:46→15:29)
[2019-05-08] MEDS: HEPARIN SUBQ SCH ×3 (06:16→23:18)
[2019-05-08] MEDS: HUMALOG SUBQ SCH ×4 (06:16→21:22)
[2019-05-08 06:30] LABS: BASO# 0.05 X1000 (0.0-0.2); BASO% 0.4 % (0.0-0.8); EOS# 0.06 X1000 (0.0-0.7); EOS% 0.4 % (0.0-10.0); HEMOGLOBIN 9.8 g/dL (12.0-16.0); IMM GRAN# 1.33 X1000 (0.0-0.04); IMM GRAN% 9.6 % (0.0-0.5); LYMPH# 1.84 X1000 (1.2-3.4); LYMPH% 13.3 % (20.5-51.1); MCH 29.6 PG (27-31); MCHC 31.6 g/dL (33-37); MCV 93.7 FL (81-99); MONO# 1.49 X1000 (0.11-0.59); MONO% 10.8 % (1.7-9.3); MPV 10.7 FL (7.4-10.4); NEUT# 9.06 X1000 (1.4-6.5); NEUT% 65.5 % (42.2-75.2); PLT 197 X1000 (130-400); RBC 3.31 XMIL (4.2-5.4); RDW 13.9 % (11.5-14.5); WBC 13.83 X1000 (4.8-10.8)
--- NOTE | 2019-05-08 06:37 | Diag Imaging Result Doc PS360 ---
CHEST-PORTABLE - 05/08/2019 INDICATION: abnormal exam COMPARISON: 05/06/2019 FINDINGS: There has been worsening in the left pleural effusion, now moderate in size. Stable cardiomegaly and central pulmonary vascular congestion. Grossly stable patchy infiltrate or atelectasis at both lung bases, and the right upper lobe. IMPRESSION: Worsening left pleural effusion. Electronically signed by Rock Nixon 05/08/2019 6:35 AM
[2019-05-08 06:59] LABS: AGAP 13; ALB/GLOB RATIO 0.6; ALBUMIN 2.3 g/dL (3.5-5.0); ALKALINE PHOSPHATASE 77 U/L (32-104); BUN 15 mg/dL (8-22); CALCIUM 7.6 mg/dL (8.8-10.2); CHLORIDE 105 mmol/L (98-107); COSMO 285; CREATININE 0.5 mg/dL (0.5-0.9); ESTIMATED GFR > 60; GLUCOSE 109 mg/dL (70-104); GOT 12 U/L (10-30); GPT 26 U/L (10-36); MAGNESIUM 1.7 mg/dL (1.5-2.7); PHOSPHORUS 1.9 mg/dL (2.7-4.5); POTASSIUM 3.5 mmol/L (3.5-5.1); SODIUM 142 mmol/L (136-145); TCO2 24 mmol/L (25-35); TOTAL BILIRUBIN 0.32 mg/dL (0.20-1.00)
[2019-05-08] MEDS: ASPIRIN EC PO SCH (08:27)
[2019-05-08] MEDS: KLONOPIN PO SCH ×2 (08:28→21:20)
[2019-05-08] MEDS: COREG PO SCH ×2 (08:28→21:23)
[2019-05-08] MEDS: LEXAPRO PO SCH (08:28)
[2019-05-08] MEDS: TAMIFLU PO SCH ×2 (08:28→21:21)
--- NOTE | 2019-05-08 08:45 | EKG Report ---
Test Performed on : 05/07/2019 00:33:32 AM Test Reason : CCU. NO order in [place] Blood Pressure : / mmHG Vent. Rate : 126 BPM Atrial Rate : 125 BPM P-R Int : 000 ms QRS Dur : 092 ms QT Int : 324 ms P-R-T Axes : 000 050 -43 degrees QTc Int : 469 ms Atrial fibrillation. with rapid ventricular response. Nonspecific ST and T wave abnormality Abnormal ECG No previous ECGs available Confirmed by Bird Wilder MD ([id number]) on 05/09/2019 7:39:37 AM
[2019-05-08] MEDS: OFIRMEV 1000 MG/ISOTONIC SOLN 1,000 MG/100 ML BOTTLE IV PRN ×2 (08:47→23:19)
[2019-05-08] MEDS ORDERED: SODIUM PHOSPHATE 40 MEQ in NS 250 ML IV ONE (11:26)
--- NOTE | 2019-05-08 15:04 | PROGRESS NOTE ---
DATE: 05/08/2019 SUBJECTIVE: Patient has no major complaints. Blood pressure is still marginal. She had to be put back on her vasopressor. OBJECTIVE: Blood pressure 101/52, heart rate 78, respiratory rate 19, temperature 99 degrees, 100% on 6 L. Cardiovascular: Regular rate and rhythm. Pulmonary: Bilateral breath sounds clear to auscultation. GI: Soft, nontender, nondistended. Bowel sounds were positive. White count is 13, hemoglobin and hematocrit 9 and 31, platelets 197,000. PH 7.52, pCO2 of 32, PaO2 of 170. Chest x-ray shows worsening left pleural effusion which may require thoracentesis. I guess we may want to diurese her a bit. PROBLEM LIST: 1. Influenza. We will continue treatment. 2. Escherichia coli urinary tract infection which is mild resistance. 3. Positive blood culture for methicillin-resistant Staphylococcus aureus. 4. Acute hypoxic respiratory failure. She seems to be doing better. 5. Acute kidney injury. That seems to be resolving. I think we should diurese her now because her pleural effusion is worse. 6. Methicillin-resistant Staphylococcus aureus bacteremia. It is only one out of two but it is methicillin-resistant Staphylococcus aureus so that is generally accepted as not a contaminant. Probably will need infectious disease input. She is on vancomycin. This will be day 1. 7. Pneumonia. We will continue empiric antibiotics and follow. She is on cefepime but I think we could probably downgrade her to cefazolin and see how she does, and advance her diet. I think she could probably go to the floor. cc: Jone Richard MD
[2019-05-08] MEDS: MUCOMYST 20% INH SCH ×2 (15:19→21:32)
[2019-05-08] MEDS: PROTONIX IV SCH (15:29)
[2019-05-08] MEDS: TYLENOL PO PRN ×2 (15:29→21:21)
[2019-05-08] MEDS: SODIUM CHLORIDE 0.9% INJ SCH (15:29)
[2019-05-08] MEDS: LASIX IV SCH (15:30)
[2019-05-08] MEDS: KEFZOL 1 GM/D5W 1 GM/50 ML IVPB IV SCH ×2 (15:30→23:18)
[2019-05-08] MEDS: VANCOMYCIN 1,500 MG in NS 250 ML IV SCH (15:31)
[2019-05-08] MEDS: PRAVACHOL PO SCH (21:21)
[2019-05-09] MEDS: VANCOMYCIN 1,500 MG in NS 250 ML IV SCH ×2 (02:01→15:20)
[2019-05-09] MEDS: LASIX IV SCH ×2 (02:02→15:20)
[2019-05-09] MEDS: DUONEB (A & A) INH SCH ×4 (03:45→22:08)
[2019-05-09] MEDS: TYLENOL PO PRN ×2 (04:42→15:20)
[2019-05-09 05:26] LABS: ALLEN TEST YES; BE 8.7 mmoll (-3.0-3.0); BLOOD TYPE ARTERIAL; HCO3-(ACT) 31.7 mmoll (20.0-26.0); PCO2(98.6) 42 mmHg (35-45); PO2(98.6) 69 mmHg (60-100); SAMPLE BLOOD
[2019-05-09] MEDS: NS 1,000 ML IV SCH (05:52)
[2019-05-09 06:02] LABS: MODALITY CANNULA
[2019-05-09] MEDS: HEPARIN SUBQ SCH ×3 (06:02→23:04)
[2019-05-09] MEDS: KEFZOL 1 GM/D5W 1 GM/50 ML IVPB IV SCH (06:03)
[2019-05-09] MEDS: HUMALOG SUBQ SCH ×4 (06:03→21:41)
[2019-05-09] MEDS: NORCO-5 PO PRN (06:14)
[2019-05-09 06:41] LABS: AGAP 15; BUN 10 mg/dL (8-22); CALCIUM 8.3 mg/dL (8.8-10.2); CHLORIDE 97 mmol/L (98-107); COSMO 273; CREATININE 0.6 mg/dL (0.5-0.9); ESTIMATED GFR > 60; GLUCOSE 128 mg/dL (70-104); POTASSIUM 3.4 mmol/L (3.5-5.1); SODIUM 136 mmol/L (136-145); TCO2 24 mmol/L (25-35)
--- NOTE | 2019-05-09 06:53 | PULMONOLOGY PROGRESS NOTE ---
DATE: 05/08/2019 SUBJECTIVE: The patient is awake and alert. She has a wet cough. She had some choking on liquids but nurse reports it was isolated. OBJECTIVE: Vital Signs: Maximum temperature in the last 24 hours is 100.0 degrees, blood pressure 109/64, heart rate 90, respiratory rate 22, oxygen saturation 95%. HEENT: Pupils are equal and reactive. Oropharynx appears clear. Neck is supple. Chest reveals rhonchi bilaterally with decreased breath sounds, left base. Cardiac Examination: S1-S2. Abdomen is soft and obese. Extremities are without edema. Laboratories: Chest x-ray reveals increased effusion on the left with infiltrates in both lung bases and throughout the left lung. White blood count 13.8, hemoglobin 9.8, platelet count 197,000. Arterial blood gas reveals a pH of 7.52, pCO2 of 32, PO2 of 170, lactate 1.5. Sodium 142, potassium 3.5, chloride 105, bicarbonate 24, BUN 15, creatinine 0.5. IMPRESSION: A 63-year-old with: 1. Aspiration pneumonia. 2. Influenza. 3. Acute hypoxemic respiratory failure. 4. Urinary tract infection. 5. Diabetes mellitus. 6. New left-sided pleural effusion. DISCUSSION: A 63-year-old with problems outlined above. She does have a small to moderate left- sided pleural effusion. I reviewed the case with Dr. Nixon who did not feel that she was a candidate for a thoracentesis with this current size of her effusion. PLAN: 1. Continue broad-spectrum antibiotics. 2. Continue Tamiflu. 3. Cautious p.o. intake. Her swallowing appears marginal. 4. Continue bronchial hygiene. 5. Consider thoracentesis if pleural effusion continues to get larger. cc: Joe Vieyra MD
--- NOTE | 2019-05-09 07:01 | Diag Imaging Result Doc PS360 ---
EXAM: CHEST-PORTABLE HISTORY: abnormal exam TECHNIQUE: Single view COMPARISON: 05/08/2019 FINDINGS: The right lung is well expanded and clear. There is a small to moderate-sized left pleural effusion with basilar atelectasis. There may be underlying infiltrates as well. No definite cardiomegaly. IMPRESSION: Stable chest Electronically signed by Aron Cadena 05/09/2019 6:43 AM
[2019-05-09] MEDS: ASPIRIN EC PO SCH (09:05)
[2019-05-09] MEDS: LEXAPRO PO SCH (09:05)
[2019-05-09] MEDS: OFIRMEV 1000 MG/ISOTONIC SOLN 1,000 MG/100 ML BOTTLE IV PRN (09:05)
[2019-05-09] MEDS: COREG PO SCH ×2 (09:05→21:40)
[2019-05-09] MEDS: KLONOPIN PO SCH ×2 (09:05→20:12)
[2019-05-09] MEDS: TAMIFLU PO SCH ×2 (09:05→20:12)
[2019-05-09] MEDS: MUCOMYST 20% INH SCH ×2 (11:10→20:25)
[2019-05-09 11:17] LABS: INR 1.13; PROTIME 14.6 Seconds (11.0-16.0)
[2019-05-09 11:19] LABS: BASO# 0.09 X1000 (0.0-0.2); BASO% 0.7 % (0.0-0.8); EOS# 0.02 X1000 (0.0-0.7); EOS% 0.2 % (0.0-10.0); HEMATOCRIT 33.3 % (37.0-47.0); HEMOGLOBIN 10.6 g/dL (12.0-16.0); IMM GRAN# 2.08 X1000 (0.0-0.04); IMM GRAN% 16.3 % (0.0-0.5); LYMPH# 1.83 X1000 (1.2-3.4); LYMPH% 14.3 % (20.5-51.1); MCH 29.7 PG (27-31); MCHC 31.8 g/dL (33-37); MCV 93.3 FL (81-99); MONO# 1.21 X1000 (0.11-0.59); MONO% 9.5 % (1.7-9.3); MPV 10.4 FL (7.4-10.4); NEUT# 7.56 X1000 (1.4-6.5); PLT 255 X1000 (130-400); RBC 3.57 XMIL (4.2-5.4); RDW 14.3 % (11.5-14.5); WBC 12.79 X1000 (4.8-10.8)
[2019-05-09 12:05] LABS: BANDS 10 % (0-1); LYMPHS 14 % (21-51); MONO 14 % (1-9); SEGS 52 % (42-75)
--- NOTE | 2019-05-09 12:48 | PULMONOLOGY PROGRESS NOTE ---
DATE: 05/09/2019 SUBJECTIVE: The patient is awake and alert. She has a slightly wet cough. She reports she is having some back pain, which is chronic. OBJECTIVE: Vital Signs: Maximum temperature in the last 24 hours is 101.1 degrees. Blood pressure 126/79, heart rate 88, respiratory rate 22, oxygen saturation 95% on 2 liters per nasal cannula. HEENT: Pupils are equal and reactive. Oropharynx appears clear. Neck: Supple. Chest: Reveals decreased breath sounds of the left base with rhonchi bilaterally. Cardiac: S1 and S2. Abdomen: Soft with good bowel sounds. Extremities: Reveal trace edema. LABORATORIES: White blood count 12.8, hemoglobin 10.6, platelet count 255,000. Sodium 136, potassium 3.4, chloride 97, bicarbonate 24, BUN 10, creatinine 0.6. Arterial blood gas reveals a pH of 7.5, pCO2 of 42, PO2 of 69. Chest x-ray reveals small to moderate left-sided pleural effusion with infiltrates at the left base. No change. IMPRESSION: A 63-year-old with: 1. Aspiration pneumonia. 2. Influenza. 3. Hypoxemic respiratory failure. 4. Urinary tract infection. 5. Diabetes mellitus. 6. Small to moderate left-sided pleural effusion, felt to be too small for thoracentesis yesterday by Radiology. PLAN: 1. Continue broad-spectrum antibiotics. 2. Continue cautious p.o. intake. The patient has a wet cough, and I remain concerned about possible aspiration. 3. Continue bronchial hygiene. 4. Continue observing small to moderate effusion at this juncture. cc: Joe Vieyra MD
[2019-05-09] MEDS: OXY IR PO PRN ×2 (12:54→18:37)
[2019-05-09] MEDS: ROBITUSSIN-AC PO PRN ×3 (12:54→23:04)
--- NOTE | 2019-05-09 14:10 | PROGRESS NOTE ---
DATE: 05/09/2019 SUBJECTIVE: Complaining of cough, complaining of pain. OBJECTIVE: Vital Signs: Blood pressure 126/79, heart rate of 88, respiratory rate of 22, temperature 99.3 degrees 95% on 2 L. Cardiovascular: Regular rate and rhythm. She has a T-max though of 101.1. Pulmonary: Bilateral breath sounds clear to auscultation. Gastrointestinal: Abdomen soft, nontender, nondistended. Bowel sounds are positive. LABORATORY DATA: White count is 12, hemoglobin and hematocrit 10 and 33, platelets 255,000 with pH 7.5, pCO2 42, PaO2 69. Potassium is 3.4. PROBLEM LIST: 1. Influenza B. She is on Tamiflu for a total of 5 days. 2. Escherichia coli urinary tract infection. She is currently on cefazolin and she has an Escherichia coli and Proteus pneumonia for which it is also sensitive to cefazolin. 3. She has an methicillin-resistant Staphylococcus aureus bacteremia. Really unclear what has cause that and it is not showing up in her blood. She has been on vancomycin since this will be day 1, so she will need a couple more days before we can check repeat blood cultures, probably get an opinion from Infectious Disease just because she has a complicated infection. Her echocardiogram was negative for vegetation. We will order blood cultures. 4. Acute kidney injury that is resolved now. We will continue to follow. DISPOSITION: I think she is probably getting close to being able to get out of the unit. She is off pressors and there is concern over possible aspiration. Her speech evaluation, still waiting on that. She is on a pureed diet right now and she is going to be followed by them. cc: Jone Richard MD
[2019-05-09] MEDS: SODIUM CHLORIDE 0.9% INJ SCH (15:20)
[2019-05-09] MEDS: PROTONIX IV SCH (15:20)
[2019-05-09] MEDS: ROCEPHIN 2 GM in NS 50 ML IV SCH (15:45)
--- NOTE | 2019-05-09 19:18 | INFECTIOUS DISEASE CONSULT REP ---
DATE: 05/09/2019 CONCLUSION: The patient has the following infections: Escherichia coli and Proteus pneumonia and there may be an element of methicillin-resistant Staphylococcus aureus in the pneumonia as well. The patient has an Escherichia coli urinary tract infection. The patient has a methicillin- resistant Staph aureus bacteremia and finally, the patient has influenza B. 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 RECOMMENDATIONS: I agree with treating the patient with vancomycin. I have substituted Rocephin for Ancef. I also agree with giving the patient Tamiflu and finally, I have ordered immunoglobulin levels. I have requested that the nurse watch the patient during the first dose of Rocephin even though she has tolerated Ancef well. DISCUSSION: The patient was unable to give a history. The information I took was from the computer. The patient lives in a correction and she was admitted the hospital with hypoxia and hypotension. There was a possibility that a few days before she got sick she aspirated. PAST MEDICAL HISTORY: Is positive to hypertension, hyperlipidemia, chronic obstructive pulmonary disease, gastroesophageal reflux disease, insomnia, anxiety, type 2 diabetes, and a seizure disorder. PAST SURGICAL HISTORY: Positive for hysterectomy. FAMILY HISTORY: Unable to be obtained. SOCIAL HISTORY: The patient lives in a correction. She has a history of smoking cigarettes, but she does not drink alcoholic beverages or use illicit drugs. ALLERGIES: The patient is allergic to amoxicillin, causing hives and also to sulfa antibiotics. They can also cause hives. It is interesting to note that the patient is on Ancef and is tolerating that well. HOME MEDICATIONS: Include the following: Diclofenac, furosemide, Neurontin, [place], lisinopril, metformin, mirtazapine, 9, Singulair and Zofran, Ditropan, Phenergan, Ambien, carvedilol, Klonopin, Lexapro, DuoNeb, and pravastatin. REVIEW OF SYSTEMS: Unable to be obtained. LABORATORY AND RADIOLOGY: The patient's CBC shows a white count of 12,790, hemoglobin 10.6, platelet count 255,000. The blood gases show a pH of 7.5, a PO2 of 69, a pCO2 of 42, creatinine is 0.6 GFR is greater than 60. Liver function studies are normal. Drug screen is positive for opiates. PHYSICAL EXAMINATION: Vital Signs: Temperature is 99.3 degrees, pulse respirations 22, blood pressure is 126/79. The patient is 5 feet 8 inches tall, weighs 202 pounds. General: This is an obese, middle-aged female. She is in no acute distress. HEENT: She is able to hear my spoken words. When she when she tried to talk I could not make out what she was saying. She does not have any white patches in her mouth. Neck: No meningismus. Lungs: Clear to auscultation. Cardiovascular: When I listened to the patient, she was she had a regular heart rate. When I came back and listened again, it was irregular and the nurse told me that the patient fluctuates between being in sinus rhythm and then atrial fibrillation. Abdomen: Soft and nontender. Neurologic: The patient is awake, she can move her arms and legs. There was no tremor. Tthe patient is awake she did move her extremities to request, as mentioned above. When she did talk I could not understand what she was saying. Integument: No rash noted. Thank you for the consult. cc: Delbert Daniels MD
[2019-05-09] MEDS: TESSALON PO PRN (20:12)
[2019-05-09] MEDS: PRAVACHOL PO SCH (20:12)
[2019-05-09] MEDS: MOTRIN PO PRN (23:25)
[2019-05-10] MEDS: VANCOMYCIN 1,500 MG in NS 250 ML IV SCH (02:33)
[2019-05-10] MEDS: LASIX IV SCH ×2 (02:34→18:29)
[2019-05-10] MEDS: ROBITUSSIN-AC PO PRN ×2 (03:34→21:13)
[2019-05-10] MEDS: DUONEB (A & A) INH SCH ×4 (03:37→22:55)
[2019-05-10 05:48] LABS: BASO# 0.19 X1000 (0.0-0.2); BASO% 1.1 % (0.0-0.8); EOS# 0.07 X1000 (0.0-0.7); EOS% 0.4 % (0.0-10.0); HEMOGLOBIN 10.1 g/dL (12.0-16.0); IMM GRAN# 3.58 X1000 (0.0-0.04); LYMPH# 2.96 X1000 (1.2-3.4); LYMPH% 17.4 % (20.5-51.1); MCH 29.3 PG (27-31); MCHC 31.6 g/dL (33-37); MCV 92.8 FL (81-99); MONO# 1.77 X1000 (0.11-0.59); MONO% 10.4 % (1.7-9.3); MPV 9.7 FL (7.4-10.4); NEUT# 8.45 X1000 (1.4-6.5); NEUT% 49.7 % (42.2-75.2); PLT 261 X1000 (130-400); RBC 3.45 XMIL (4.2-5.4); RDW 14.1 % (11.5-14.5); WBC 17.02 X1000 (4.8-10.8)
[2019-05-10] MEDS: HUMALOG SUBQ SCH ×4 (06:25→21:15)
[2019-05-10] MEDS: HEPARIN SUBQ SCH (06:25)
[2019-05-10 06:33] LABS: AGAP 15; BUN 11 mg/dL (8-22); CALCIUM 8.6 mg/dL (8.8-10.2); CHLORIDE 96 mmol/L (98-107); COSMO 283; CREATININE 0.6 mg/dL (0.5-0.9); ESTIMATED GFR > 60; GLUCOSE 137 mg/dL (70-104); POTASSIUM 2.8 mmol/L (3.5-5.1); SODIUM 141 mmol/L (136-145); TCO2 30 mmol/L (25-35)
--- NOTE | 2019-05-10 07:23 | Diag Imaging Result Doc PS360 ---
EXAM: CHEST-PORTABLE 05/10/2019 HISTORY: abnormal exam TECHNIQUE: AP portable at 0516 COMMENT: There is a large left pleural effusion which may be partially loculated. The volume of fluid appears slightly increased since the previous study of 05/09/2019. There is shift of the mediastinum to the right. There is some atelectasis particularly in the left lower lobe. There is ill-defined opacity in the suprahilar region of the right upper lobe which was not as evident on the previous study. Otherwise the appearance of the right lung has not changed. IMPRESSION: Worsened left pleural effusion, mild pulmonary edema right upper lobe. Electronically signed by Dallas Brown 05/10/2019 7:21 AM
[2019-05-10] MEDS: LEXAPRO PO SCH (08:59)
[2019-05-10] MEDS: TAMIFLU PO SCH ×2 (08:59→20:03)
[2019-05-10] MEDS: ASPIRIN EC PO SCH (08:59)
[2019-05-10] MEDS: KLONOPIN PO SCH ×2 (08:59→20:05)
[2019-05-10] MEDS: COREG PO SCH ×2 (09:00→20:53)
--- NOTE | 2019-05-10 10:13 | INFECTIOUS DISEASE PROGRESS NO ---
DATE: 05/10/2019 PRESENT ILLNESS: The patient has methicillin-resistant Staph aureus bacteremia, influenza B, Escherichia coli and Proteus pneumonia, and there may be methicillin-resistant Staphylococcus aureus also involving the pneumonia. The patient also has influenza B. The WBC is 17,020. I will repeat it tomorrow. MEDICATIONS: The patient has been on Tamiflu now for 4 days. The patient has been on vancomycin; day 1 will be the first day that the patient's blood cultures become negative. The patient has been on Rocephin for 1 day and it is treating the patient's urinary tract infection and pneumonia, along with possibly vancomycin. PHYSICAL EXAMINATION: Vital Signs: Temperature is 99.3 degrees, pulse 79, respirations 25, blood pressure 90/44. General: This is a chronically ill-appearing middle-aged female. She is in no acute distress. Head/eyes/ears/nose/throat: She is wearing oxygen nasal cannulae. She can hear my spoken words and see near objects. She does not have any white coating of her tongue. Neck: No pain with movement. Lungs: There were bilateral rhonchi. Cardiovascular: Heart rate is regular. I did not hear a murmur. Abdomen: Soft and nontender. Neurologic: The patient is awake. She can move her extremities, but she is weak. Extremities: Patient has bilateral leg edema without erythema. LAB AND X-RAY: The patient's CBC shows a white count of 17,020, hemoglobin 10.1, and platelet count 261,000. Creatinine is 0.6. GFR is greater than 60. IgG is 730, IgA is 148. Blood cultures grew methicillin-resistant Staphylococcus aureus. Repeat blood cultures are pending. Urine culture grew Escherichia coli and sputum culture grew Escherichia coli and Proteus. The patient is on day 4 of Tamiflu, and she will need 1 more day to complete her treatment course. Chest x-ray shows bibasilar pleural effusions/atelectasis and possibly infiltrate as well. The echocardiogram showed no vegetations on the valves. ASSESSMENT AND PLAN: 1. The patient has methicillin-resistant Staphylococcus aureus bacteremia. 2. She has an Escherichia coli and Proteus and possibly methicillin-resistant Staphylococcus aureus pneumonia. 3. The patient has influenza B. I thought that the patient may have an immunoglobulin deficiency in view of all the infections she has had, but her immunoglobulin levels are normal, and no infusion of IVIG is indicated. COMORBIDITIES: The patient has chronic obstructive pulmonary disease, gastroesophageal reflux disease, type 2 diabetes, seizure disorder, and she is a cigarette smoker. cc: Delbert Daniels MD MTDD
[2019-05-10] MEDS: MUCOMYST 20% INH SCH ×2 (10:38→22:55)
[2019-05-10] MEDS: TYLENOL PO PRN ×2 (11:12→18:29)
[2019-05-10] MEDS: POTASSIUM CHLORIDE 20 MEQ/SWI 20 MEQ/100 ML IVPB IV SCH ×2 (12:27→15:00)
[2019-05-10] MEDS ORDERED: KLOR-CON PO ONE (14:04)
[2019-05-10] MEDS ORDERED: DESYREL PO PRN (14:05)
[2019-05-10] MEDS ORDERED: ZOFRAN IV PRN (14:25)
--- NOTE | 2019-05-10 14:27 | PROGRESS NOTE ---
DATE: 05/10/2019 SUBJECTIVE: The patient has no major complaints. OBJECTIVE: Blood pressure is 108/67, heart rate 82, respiratory rate of 20, temperature was 100.5 degrees. She is still febrile. Blood pressure though has stabilized and she has been off pressors for 24 hours. Laboratory Data: White count is 17, hemoglobin and hematocrit 10 and 32, platelets 261,000. Potassium is 2.8. PROBLEM LIST: 1. Influenza B. She is on Tamiflu. 2. Escherichia coli urinary tract infection. She had been on cefazolin. We will see what Dr. Daniels did. I think he switched her to Rocephin just to expand coverage I suppose and she is still on vancomycin. She is on vancomycin and Rocephin. Appreciate infectious disease input. Chest x-ray showed a worse left pleural effusion that may end up requiring being tapped. I am not quite sure if that is related to volume overload or just infection. We will put in for a thoracentesis tomorrow, I would think. 3. Left pleural effusion. She has been on diuretics since yesterday. Her effusion has gotten worse. 4. Methicillin-resistant Staphylococcus aureus bacteremia, unclear source. Her repeat blood cultures are today. Initial ones were on the 15. So far, they are negative. I am waiting on final recommendations because she may need intravenous antibiotics. Unclear why she has this issue but we will continue to follow. DISPOSITION: I think she is stable for stepdown versus the floor. We will see how she does. Please note, I have held her heparin. This may need to be restarted after her thoracentesis. We will continue to follow. cc: Jone Richard MD
[2019-05-10] MEDS: PROTONIX IV SCH (15:15)
[2019-05-10] MEDS: ROCEPHIN 2 GM in NS 50 ML IV SCH (15:15)
[2019-05-10] MEDS: SODIUM CHLORIDE 0.9% INJ SCH (15:15)
--- NOTE | 2019-05-10 16:39 | Diag Imaging Result Doc PS360 ---
CT THORAX W/O CONTRAST - 05/10/2019 INDICATION: increasing opacification COMPARISON: Chest x-ray from earlier today FINDINGS: There has been worsening of the left pleural effusion. This is probably loculated, this is somewhat superior and lateral. There is significant consolidated left lung although the lung is mostly collapsed. There is trace right pleural effusion and small amount of atelectasis at the right lung base. Heart size is top normal. Upper abdominal images are normal. There are old rib deformities on the left. No acute bony lesions. IMPRESSION: 1. Increasing, possibly loculated left pleural effusion. 2. Significant infiltrate throughout the left lung mainly in the left lower lobe. 3. Trace effusion and small infiltrate in the right lung base. This exam was performed using automated exposure control, adjustment of mA or kV according to patient size, and/or use of iterative reconstruction technique Electronically signed by Rock Nixon 05/10/2019 4:37 PM
[2019-05-10] MEDS ORDERED: VANCOMYCIN 1,500 MG in NS 250 ML IV SCH (19:00)
[2019-05-10] MEDS: VANCOMYCIN 1,700 MG in NS 250 ML IV SCH (19:11)
[2019-05-10] MEDS: TESSALON PO PRN (20:02)
[2019-05-10] MEDS: DITROPAN PO SCH (20:02)
[2019-05-10] MEDS: SINGULAIR PO SCH (20:02)
[2019-05-10] MEDS: NEURONTIN PO SCH (20:03)
[2019-05-10] MEDS: PRAVACHOL PO SCH (20:03)
[2019-05-10] MEDS: REMERON SOLTAB PO SCH (20:04)
--- NOTE | 2019-05-10 20:39 | PULMONOLOGY PROGRESS NOTE ---
DATE: 05/10/2019 SUBJECTIVE: The patient is awake and alert. She has a fair cough effort, which is less congested than yesterday. She reports she feels cold. She denies shortness of breath. She has a poor appetite. OBJECTIVE: Vital Signs: Maximum temperature in the last 24 hours is 100.4 degrees, blood pressure 117/55, heart rate 85, respiratory rate 25, oxygen saturation 97% on 2 L per nasal cannula. HEENT: Pupils are equal and reactive. Oropharynx appears clear. Neck: Supple. Chest: Reveals diminished breath sounds left base. Cardiac exam: S1, S2. Abdomen: Soft. Extremities: Without edema. LABORATORY DATA: Immunoglobulin levels are normal. White blood count 17.0, hemoglobin 10.1, platelet count 261,000. Arterial blood gas reveals pH 7.50, pCO2 of 42, pO2 of 69 with normal lactate. IMAGING: Chest x-ray reveals increased density at the left base. She is rotated and making it difficult to tell whether there is actual shift. IMPRESSION: A 63-year-old with: 1. Aspiration pneumonia. 2. Influenza. 3. Hypoxemic respiratory failure. 4. Urinary tract infection. 5. Diabetes mellitus. 6. Increasing opacification in the left hemithorax. Yesterday, Radiology felt the pleural effusion was too small for thoracentesis. RECOMMENDATIONS: 1. Continue broad-spectrum antibiotics. 2. Obtain CT scan of the thorax to better define consolidation versus effusion in the left base. 3. Continue bronchial hygiene. 4. Oxygen or BiPAP as needed for respiratory failure. cc: Joe Vieyra MD
[2019-05-11] MEDS: NEURONTIN PO SCH ×2 (01:40→09:41)
[2019-05-11] MEDS: ROBITUSSIN-AC PO PRN (02:46)
[2019-05-11] MEDS: MOTRIN PO PRN ×2 (02:52→20:25)
[2019-05-11] MEDS: DUONEB (A & A) INH SCH ×4 (03:38→21:29)
[2019-05-11 05:47] LABS: BASO# 0.08 X1000 (0.0-0.2); BASO% 0.4 % (0.0-0.8); EOS# 0.05 X1000 (0.0-0.7); EOS% 0.3 % (0.0-10.0); HEMATOCRIT 30.3 % (37.0-47.0); HEMOGLOBIN 9.6 g/dL (12.0-16.0); IMM GRAN# 2.84 X1000 (0.0-0.04); IMM GRAN% 15.2 % (0.0-0.5); LYMPH# 3.05 X1000 (1.2-3.4); LYMPH% 16.4 % (20.5-51.1); MCH 29.4 PG (27-31); MCHC 31.7 g/dL (33-37); MCV 92.7 FL (81-99); MONO% 10.2 % (1.7-9.3); MPV 9.6 FL (7.4-10.4); NEUT# 10.72 X1000 (1.4-6.5); NEUT% 57.5 % (42.2-75.2); PLT 309 X1000 (130-400); RBC 3.27 XMIL (4.2-5.4); RDW 14.2 % (11.5-14.5); WBC 18.64 X1000 (4.8-10.8)
[2019-05-11 05:58] LABS: AGAP 14; BUN 10 mg/dL (8-22); CALCIUM 7.8 mg/dL (8.8-10.2); CHLORIDE 92 mmol/L (98-107); COSMO 275; CREATININE 0.6 mg/dL (0.5-0.9); ESTIMATED GFR > 60; GLUCOSE 139 mg/dL (70-104); POTASSIUM 2.6 mmol/L (3.5-5.1); SODIUM 137 mmol/L (136-145); TCO2 31 mmol/L (25-35)
[2019-05-11] MEDS: LASIX IV SCH (06:07)
[2019-05-11 06:24] LABS: LYMPHS 18 % (21-51); MONO 10 % (1-9); SEGS 72 % (42-75)
[2019-05-11] MEDS: HUMALOG SUBQ SCH ×4 (07:04→20:26)
[2019-05-11] MEDS: VANCOMYCIN 1,700 MG in NS 250 ML IV SCH ×2 (07:08→21:00)
--- NOTE | 2019-05-11 08:44 | INFECTIOUS DISEASE PROGRESS NO ---
DATE: 05/11/2019 PRESENT ILLNESS: The patient has a methicillin-resistant Staphylococcus aureus bacteremia, influenza B, and an Escherichia coli and Proteus and also most likely methicillin-resistant Staphylococcus aureus pneumonia. The patient is having an increasing left pleural effusion and in view of the fact that the patient had a temperature up to 100.8 and also that the white blood cell count is increasing, she may have an empyema. MEDICATIONS: The patient has completed her course of Tamiflu. She has been on Rocephin for 2 days now and vancomycin for 4 days. I will count vancomycin as being 1 instead of 4 when she has repeat blood cultures that are sterile. Blood cultures were drawn yesterday and they yesterday and no results are back yet. PHYSICAL EXAMINATION: Vital Signs: Temperature was 100.6, pulse 86, respirations 21, blood pressure 99/53. General: This is a chronically ill-appearing middle-aged female. She is in no acute distress. Head/eyes/ears/nose/throat: The patient has no teeth. There are no white patches in her mouth. There is no drainage from her ears or nose. She can hear my spoken words and see near objects. Neck: No pain with movement. Lungs: Lungs had bilateral rhonchi. Cardiovascular: Heart rate was regular. There were a few times when she appeared to have a premature beat, most likely a premature ventricular contraction. Abdomen: Soft and not tender. Neurologic: The patient did answer questions. She did move her extremities to request. There was no tremor. LAB AND X-RAY: The CBC shows that the white count is increased to 18,640, hemoglobin 9.6, platelet count 309,000. Creatinine is 0.6 GFR is greater than 60. On CT scan, the patient does have a left pleural effusion, a significant left lung infiltrate, and a small effusion and infiltrate on the right side. ASSESSMENT AND PLAN: Patient has Staphylococcus aureus bacteremia and an Escherichia coli, Proteus, and probable methicillin-resistant Staphylococcus aureus also pneumonia. She has completed her treatment for influenza B. In view of the patient's left pleural effusion getting better and her white count going up and she is having a low-grade fever, she may be developing an empyema. I agree with Dr. Richard's was order to perform a thoracentesis to see if the patient does have an empyema. COMORBIDITIES: Chronic obstructive pulmonary disease, gastroesophageal reflux disease, diabetes mellitus, seizure disorder, and cigarette smoking. cc: Delbert Daniels MD
[2019-05-11] MEDS: MUCOMYST 20% INH SCH ×2 (09:05→21:29)
[2019-05-11] MEDS ORDERED: NS 1,000 ML IV ONE (09:12)
[2019-05-11] MEDS: COREG PO SCH ×2 (09:41→20:25)
[2019-05-11] MEDS: DITROPAN PO SCH ×2 (09:41→20:25)
[2019-05-11] MEDS: ASPIRIN EC PO SCH (09:41)
[2019-05-11] MEDS: KLONOPIN PO SCH ×2 (09:42→20:25)
[2019-05-11] MEDS: LEXAPRO PO SCH (09:42)
[2019-05-11] MEDS ORDERED: LEVOPHED 8 MG in D5 1/2 NS 250 ML IV SCH (10:00)
[2019-05-11 10:12] LABS: ALLEN TEST YES; BE 7.5 mmoll (-3.0-3.0); BLOOD TYPE ARTERIAL; HCO3-(ACT) 30.7 mmoll (20.0-26.0); METHB 0.6 % (0.0-1.5); O2(CT) 14.6 mL/dL (15.0-23.0); O2HB 93.8 % (95.0-99.0); PCO2(98.6) 39 mmHg (35-45); PO2(98.6) 68 mmHg (60-100); SAMPLE BLOOD; SAO2 95.6 % (95.0-100.0); pH(98.6) 7.51 (7.35-7.45)
[2019-05-11 10:13] LABS: MODALITY CANNULA
[2019-05-11] MEDS: POTASSIUM CHLORIDE 20 MEQ/SWI 20 MEQ/100 ML IVPB IV SCH ×2 (10:22→12:27)
[2019-05-11] MEDS: TYLENOL PO PRN ×2 (12:30→17:30)
--- NOTE | 2019-05-11 14:20 | PROGRESS NOTE ---
DATE: 05/11/2019 SUBJECTIVE: The patient has no major complaints. Per nursing this morning, she was very lethargic and she got hypotensive this morning but has responded very well to a fluid bolus. OBJECTIVE: Vital Signs: Blood pressure 91/65, heart rate 94, respiratory rate 23, temperature 99.4 degrees, 96% on 2 L. Cardiovascular: Regular rate. Pulmonary: Bilateral breath sounds clear to auscultation. Abdomen: Soft, nontender, not distended. Bowel sounds are positive. LABORATORY DATA: White count is 18, platelets 309,000. The pH is 7.4, pCO2 38, pCO2 68. Potassium 2.6, creatinine 0.6. PROBLEM LIST: 1. Influenza B. We will continue Tamiflu and follow. 2. Escherichia coli urinary tract infection. She is on Rocephin per Dr. Daniels. Appreciate his input. 3. Escherichia coli pneumonia. She is again on Rocephin, improving, but she still has very large left pleural effusion despite diuresis. I think she will need thoracentesis once we can get her off pressors. 4. Methicillin resistant Staphylococcus aureus bacteremia, unclear source. Repeat blood cultures are negative thus far. We will continue empiric antibiotics. 5. History of influenza B. We will continue to follow closely. DISPOSITION: I felt she was stable for step-down, but now she is back on treatments, so we will wait to see how she does. cc: Jone Richard MD [facility]
[2019-05-11] MEDS: ROCEPHIN 2 GM in NS 50 ML IV SCH (14:59)
[2019-05-11] MEDS: NEURONTIN PO PRN (16:47)
[2019-05-11] MEDS: PRAVACHOL PO SCH (20:25)
[2019-05-11] MEDS: SINGULAIR PO SCH (20:25)
[2019-05-11] MEDS: AMBIEN PO PRN (20:25)
[2019-05-11] MEDS: TESSALON PO PRN (20:25)
[2019-05-11] MEDS: REMERON SOLTAB PO SCH (20:32)
--- NOTE | 2019-05-11 21:59 | PULMONOLOGY PROGRESS NOTE ---
DATE: 05/11/2019 TIME OF EVALUATION: 9 a.m. SUBJECTIVE: The patient is awake and alert. She indicates mild dyspnea, but no increased work of breathing. Her blood pressure is slightly low. OBJECTIVE: Vital Signs: BP 91/50, heart rate 91 chloride 90, oxygen saturation 94% on 2 L per nasal cannula. HEENT: Pupils are equal and reactive. Oropharynx appears clear. Neck: Is supple. Chest: Reveals diminished breath sounds at left base. Cardiac exam: S1, S2. Abdomen: Is soft. Extremities: Without edema. LABORATORIES: CT scan from last evening reveals increase in left-sided pleural effusion. White blood count 18.6, hemoglobin 9.6, platelet count 309,000. Arterial blood gas pH 7.51, pCO2 of 39, pO2 of 68, with a normal lactate. IMPRESSION: A 63-year-old with 1. Aspiration pneumonia. 2. Staphylococcus aureus bacteremia. 3. Increase left-sided pleural effusion. 4. Diabetes mellitus. 5. Urinary tract infection. 6. Increasing left-sided effusion. PLAN: 1. Fluid bolus for mild hypotension. We will initiate Levophed if she does not respond to fluids. 2. Proceed with ultrasound-guided thoracentesis ordered by Dr. Richard. I have placed labs for this procedure. 3. Continue current antibiotics. 4. Anticipate chest tube placement if empyema identified on pleural effusion. cc: Joe Vieyra MD
[2019-05-12] MEDS: TYLENOL PO PRN ×2 (02:48→11:19)
[2019-05-12] MEDS: DUONEB (A & A) INH SCH ×4 (03:28→22:10)
[2019-05-12 04:42] LABS: ALLEN TEST YES; BE 9.2 mmoll (-3.0-3.0); BLOOD TYPE ARTERIAL; HCO3-(ACT) 32.1 mmoll (20.0-26.0); PCO2(98.6) 39 mmHg (35-45); PO2(98.6) 109 mmHg (60-100); SAMPLE BLOOD; pH(98.6) 7.53 (7.35-7.45)
[2019-05-12 04:43] LABS: MODALITY CANNULA
--- NOTE | 2019-05-12 05:47 | Diag Imaging Result Doc PS360 ---
EXAM: CHEST-PORTABLE HISTORY: abnormal exam TECHNIQUE: Single view COMPARISON: 05/10/2019 FINDINGS: There is a moderate-sized left pleural effusion with atelectasis and infiltrates throughout the left lung. Right lung remains well expanded and clear. No cardiomegaly. No right-sided pleural effusion identified. IMPRESSION: No interval improvement. Electronically signed by Aron Cadena 05/12/2019 5:45 AM
[2019-05-12] MEDS: HUMALOG SUBQ SCH ×3 (05:59→16:20)
[2019-05-12] MEDS: MOTRIN PO PRN ×2 (06:07→17:15)
[2019-05-12 06:22] LABS: BASO# 0.08 X1000 (0.0-0.2); BASO% 0.5 % (0.0-0.8); EOS# 0.13 X1000 (0.0-0.7); EOS% 0.7 % (0.0-10.0); HEMATOCRIT 28.8 % (37.0-47.0); IMM GRAN# 2.24 X1000 (0.0-0.04); IMM GRAN% 12.6 % (0.0-0.5); LYMPH# 2.26 X1000 (1.2-3.4); LYMPH% 12.8 % (20.5-51.1); MCH 29.5 PG (27-31); MCHC 31.3 g/dL (33-37); MCV 94.4 FL (81-99); MONO# 1.46 X1000 (0.11-0.59); MONO% 8.2 % (1.7-9.3); MPV 9.5 FL (7.4-10.4); NEUT# 11.54 X1000 (1.4-6.5); NEUT% 65.2 % (42.2-75.2); PLT 303 X1000 (130-400); RBC 3.05 XMIL (4.2-5.4); RDW 14.2 % (11.5-14.5); WBC 17.71 X1000 (4.8-10.8)
[2019-05-12 06:45] LABS: AGAP 13; BUN 9 mg/dL (8-22); CHLORIDE 98 mmol/L (98-107); COSMO 279; CREATININE 0.5 mg/dL (0.5-0.9); ESTIMATED GFR > 60; GLUCOSE 123 mg/dL (70-104); POTASSIUM 2.9 mmol/L (3.5-5.1); SODIUM 140 mmol/L (136-145); TCO2 29 mmol/L (25-35)
[2019-05-12] MEDS: MUCOMYST 20% INH SCH ×2 (08:25→22:10)
[2019-05-12] MEDS: KLONOPIN PO SCH ×2 (08:42→20:34)
[2019-05-12] MEDS: DITROPAN PO SCH ×2 (08:42→20:31)
[2019-05-12] MEDS: COREG PO SCH ×2 (08:42→20:33)
[2019-05-12] MEDS: ASPIRIN EC PO SCH (08:42)
--- NOTE | 2019-05-12 12:34 | Diag Imaging Result Doc PS360 ---
EXAM: CHEST-2 VIEWS HISTORY: POST THORACENTESIS TECHNIQUE: Inspiratory and expiratory chest, two views COMPARISON: 5:18 AM FINDINGS: Interval decrease in the size of the lateral left fluid collection following the thoracentesis. No pneumothorax. Decreased atelectasis in the left lung. IMPRESSION: No postprocedural pneumothorax. Electronically signed by Aron Cadena 05/12/2019 12:32 PM
--- NOTE | 2019-05-12 13:21 | INFECTIOUS DISEASE PROGRESS NO ---
DATE: 05/12/2019 PRESENT ILLNESS: The patient has methicillin-resistant Staph aureus bacteremia. She also has an Escherichia coli and Proteus, and most likely methicillin-resistant Staph aureus pneumonia. The patient had influenza B, but she has completed treatment for that. The patient's white blood cell count did come down a little bit to 17,710. However, the patient is continuing with a fever. MEDICATIONS: The patient has been on Rocephin now for 3 days. The vancomycin has been given to the patient for 5 days, but I do not count that as treatment. What I do count is that the vancomycin treatment day will be #1 when the repeat blood cultures are negative. They are pending at this time. PHYSICAL EXAMINATION: Vital Signs: Temperature maximum was 101.2. It is down to 100 now. Pulse is 76, respirations 28, blood pressure is 112/61. General: This is a chronically ill-appearing, middle-aged female. She is lethargic. She is in no acute distress. Head/eyes/ears/nose/throat: No drainage noted from the nose or ears. Neck: No apparent pain when I passively moved her neck. Lungs: There were bilateral rhonchi. Cardiovascular: Heart rate is regular. Abdomen: Soft and does not appear to be tender. Neurologic: As mentioned above, the patient is lethargic this morning. LAB AND X-RAY: Chest x-ray shows clear right lung. There is a left pleural effusion and an infiltrate throughout the left lung. The patient's CBC shows a white count of 17,710, hemoglobin 9, platelet count 303,000. Blood gases show a pH of 7.53, pO2 of 109, pCO2 of 39. Creatinine is 0.6. GFR is greater than 60. The patient's repeat blood cultures are pending. ASSESSMENT AND PLAN: The patient has Staph aureus bacteremia for which she is on vancomycin. Day #1 of vancomycin will be the first day that the patient's repeat blood cultures are negative. The patient has an Escherichia coli, Proteus and probable methicillin-resistant Staph aureus pneumonia, and I will plan on continuing Rocephin and vancomycin for the pneumonia. I thoroughly agree with performing a thoracentesis on the patient because she may have an empyema and that may be the cause of her having fever and a high white count. COMORBIDITIES: The patient has chronic obstructive pulmonary disease, gastroesophageal reflux disease, diabetes mellitus, seizure disorder, and the patient is a cigarette smoker. cc: Delbert Daniels MD
--- NOTE | 2019-05-12 13:56 | PROGRESS NOTE ---
DATE: 05/12/2019 SUBJECTIVE: She seems okay this morning. OBJECTIVE: Vital signs: Blood pressure 113/61, heart rate 77, respiratory rate of 23, temperature of 99 degrees. She has had a temperature all night, 100 to 101 degrees. Cardiovascular: Regular rate and rhythm. Pulmonary: Bilateral breath sounds diminished throughout. Bronchial breath sounds on the left side throughout. Gastrointestinal: Soft, nontender. LABORATORY DATA: White count 17, hemoglobin and hematocrit 9 and 28, platelets 303,000. pH 7.53, pCO2 39, PaO2 109. Potassium is 2.9. PROBLEM LIST: She has multiple infectious disease issues. 1. Methicillin-resistant Staphylococcus aureus bacteremia. She is on vancomycin, this will be day 5, and she is on Rocephin for 3 days. Her most recent set of blood cultures from the are negative, so a day 1 of her Methicillin-resistant Staphylococcus aureus will be the , so technically this will be day 3 on vancomycin of her Methicillin-resistant Staphylococcus aureus treatment, which presumably I think we could treat for just 2 weeks but that is at the discretion of Dr. Daniels. 2. Escherichia coli urinary tract infection. She is on Rocephin, again this is day 3. 3. Pneumonia. Sputum has grown out Escherichia coli and Proteus mirabilis which are both sensitive to cefazolin. Therefore, Rocephin is effective, so we will continue treatment with that. 4. Large pleural effusion which is rapidly expanding. Did not improve with diuresis. If anything, it made her hypotensive. She was going to undergo thoracentesis yesterday; we had delay it because of hypotension. DISPOSITION: Pending her clinical status. If she is improving, we may be able to go the [facility] if her numbers are improving. cc: Jone Richard MD
[2019-05-12 14:13] LABS: BODY FLUID SOURCE PLEURAL FLUID; SPECIMEN PLEURAL FLUID; WBC BF 435 /cumm
[2019-05-12 14:37] LABS: AMYLASE BODY FLUID 17 U/L; GLUCOSE BODY FLUID 84 mg/dL; LDH BODY FLUID 564 U/L; TOTAL PROT BODY FLUID 3.7 g/dL
[2019-05-12 14:40] LABS: MONOS 7 %; POLYS 93 %
[2019-05-12] MEDS: NEURONTIN PO PRN ×2 (14:47→20:39)
[2019-05-12] MEDS: ROCEPHIN 2 GM in NS 50 ML IV SCH (16:15)
[2019-05-12] MEDS: VANCOMYCIN 1,600 MG in NS 250 ML IV SCH (16:15)
--- NOTE | 2019-05-12 16:41 | Diag Imaging Result Doc PS360 ---
EXAM: CHEST-2 VIEWS 05/12/2019 HISTORY: 4 HR POST THORACENTISIS TECHNIQUE: Portable inspiratory expiratory chest at 1632 COMMENT: There is still a fairly large left pleural fluid collection. There is no evidence of pneumothorax. The right lung is clear and unchanged. The heart size is within normal limits. IMPRESSION: Left pleural effusion. Electronically signed by Dallas Brown 05/12/2019 4:39 PM
[2019-05-12] MEDS: TESSALON PO PRN (18:26)
[2019-05-12] MEDS: NORCO-7.5 PO PRN (18:50)
--- NOTE | 2019-05-12 18:53 | PROVIDER PROGRESS NOTE ---
Progress Note Dr. Rose Progress Note/Pulmonary and or critical care Subjective: The patient is lying in bed on NC 3L with SaO2 in high 90s. She is awake and alert. She is complaining of back pain. She has mild audible wheezing. Thoracentesis is pending. Input is appreciated from Dr. Rodríguez and other teams on the case. Objective: Vital Signs: T 99 (fever in last 24 hours), MI 76, RR 18, BP 114/67 and SaO2 100% on NC 3L I/O: -189ml Physical Examination: General: Lying in bed with no acute distress noted. HEENT: Normocephalic. Trachea midline. Mucosa pink and moist. Pupils equal round reactive to light. Respiratory: Even and unlabored. Symmetrical excursion. Auscultation reveals coarse breathing sounds and wheezing bilaterally. CVS: Regular rate and rhythm with S1 and S2 appreciated. Abdomen: Soft. Nontender. Bowel sounds present in all 4 quadrants. Extremities: No pedal edema. Neuro: Awake and alert. Answer simple questions. Following simple commands. Labs and Radiology: Laboratory Results 05/11/19 05/12/19 05/12/19 20:12 04:32 05:49 WBC RBC Hgb Hct MCV MCH MCHC RDW Std Deviation Plt Count MPV Immature Gran % (Auto) Neut % (Auto) Lymph % (Auto) [place] % (Auto) Eos % (Auto) Baso % (Auto) Immature Gran # (Auto) Neut # (Auto) Lymph # (Auto) [place] # (Auto) Eos # (Auto) Baso # (Auto) Specimen Type ARTERIAL Sample Site R RADIAL pH 7.53 H pCO2 39 pO2 109 H HCO3 32.1 H Base Excess 9.2 H Hua Test YES A-a O2 Difference 42.0 Lactate 1.00 Liter Flow 2.0 Blood Gas Modality CANNULA FiO2 % 28.0 Sodium Potassium Chloride Carbon Dioxide Anion Gap BUN Creatinine Estimated GFR/1.73 m2 BUN/Creatinine Ratio Glucose POC Glucose 120 H 101 Calculated Osmolality Calcium Fluid Source Fluid pH Fluid WBC Fluid Polynuclear WBCs Fluid Mononuclear WBCs Fluid Glucose Fluid Total Protein Fluid LDH Fluid Amylase Random Vancomycin 05/12/19 05/12/19 05/12/19 06:00 06:00 06:00 WBC 17.71 H RBC 3.05 L Hgb 9.0 L Hct 28.8 L MCV 94.4 MCH 29.5 MCHC 31.3 L RDW Std Deviation 14.2 Plt Count 303 MPV 9.5 Immature Gran % (Auto) 12.6 H Neut % (Auto) 65.2 Lymph % (Auto) 12.8 L [place] % (Auto) 8.2 Eos % (Auto) 0.7 Baso % (Auto) 0.5 Immature Gran # (Auto) 2.24 H Neut # (Auto) 11.54 H Lymph # (Auto) 2.26 [place] # (Auto) 1.46 H Eos # (Auto) 0.13 Baso # (Auto) 0.08 Specimen Type Sample Site pH pCO2 pO2 HCO3 Base Excess Hua Test A-a O2 Difference Lactate Liter Flow Blood Gas Modality FiO2 % Sodium 140 Potassium 2.9 L Chloride 98 Carbon Dioxide 29 Anion Gap 13 BUN 9 Creatinine 0.5 Estimated GFR/1.73 m2 > 60 BUN/Creatinine Ratio 18 Glucose 123 H POC Glucose Calculated Osmolality 279 Calcium 8.0 L Fluid Source Fluid pH Fluid WBC Fluid Polynuclear WBCs Fluid Mononuclear WBCs Fluid Glucose Fluid Total Protein Fluid LDH Fluid Amylase Random Vancomycin 26.60 D 05/12/19 05/12/19 05/12/19 10:29 12:20 12:20 WBC RBC Hgb Hct MCV MCH MCHC RDW Std Deviation Plt Count MPV Immature Gran % (Auto) Neut % (Auto) Lymph % (Auto) [place] % (Auto) Eos % (Auto) Baso % (Auto) Immature Gran # (Auto) Neut # (Auto) Lymph # (Auto) [place] # (Auto) Eos # (Auto) Baso # (Auto) Specimen Type PLEURAL FLUID Sample Site pH pCO2 pO2 HCO3 Base Excess Hua Test A-a O2 Difference Lactate Liter Flow Blood Gas Modality FiO2 % Sodium Potassium Chloride Carbon Dioxide Anion Gap BUN Creatinine Estimated GFR/1.73 m2 BUN/Creatinine Ratio Glucose POC Glucose 111 H Calculated Osmolality Calcium Fluid Source * PLEURAL FLUID Fluid pH 7.0 Fluid WBC 435 Fluid Polynuclear WBCs 93 Fluid Mononuclear WBCs 7 Fluid Glucose 84 Fluid Total Protein 3.7 Fluid LDH 564 Fluid Amylase 17 Random Vancomycin 05/12/19 16:14 WBC RBC Hgb Hct MCV MCH MCHC RDW Std Deviation Plt Count MPV Immature Gran % (Auto) Neut % (Auto) Lymph % (Auto) [place] % (Auto) Eos % (Auto) Baso % (Auto) Immature Gran # (Auto) Neut # (Auto) Lymph # (Auto) [place] # (Auto) Eos # (Auto) Baso # (Auto) Specimen Type Sample Site pH pCO2 pO2 HCO3 Base Excess Hua Test A-a O2 Difference Lactate Liter Flow Blood Gas Modality FiO2 % Sodium Potassium Chloride Carbon Dioxide Anion Gap BUN Creatinine Estimated GFR/1.73 m2 BUN/Creatinine Ratio Glucose POC Glucose 183 H D Calculated Osmolality Calcium Fluid Source Fluid pH Fluid WBC Fluid Polynuclear WBCs Fluid Mononuclear WBCs Fluid Glucose Fluid Total Protein Fluid LDH Fluid Amylase Random Vancomycin Assessment: Acute respiratory failure. Aspiration pneumonia. Sputum culture positive to E. coli and Proteus Mirabilis. CXR this morning showed no interval improvement. Increased left-sided pleural effusion. Thoracentesis pending. Shock, for that reason thoracentesis was held yesterday. Influenza B. s/p Tamiflu. Staphylococcus aureus bacteremia UTI. Diabetes mellitus. Prognosis guarded. Plan: Antibiotics (Ceftriaxone and Vancomycin). Bronchodilators. Mucomyst. Weaning oxygen as tolerated. Thoracentesis scheduled today per Dr. Richard. Labs ordered per Dr. Vieyra. If empyema identified on pleural effusion, anticipate chest tube placement. DVT prophylaxis. Continue ICU observation because of recent shock. Total evaluation time in minutes: 33.
[2019-05-12] MEDS: SINGULAIR PO SCH (20:32)
[2019-05-12] MEDS: REMERON SOLTAB PO SCH (20:32)
[2019-05-12] MEDS: AMBIEN PO PRN (20:33)
[2019-05-12] MEDS: PRAVACHOL PO SCH (20:34)
[2019-05-13] MEDS: NORCO-7.5 PO PRN ×4 (00:31→20:34)
[2019-05-13] MEDS: VANCOMYCIN 1,600 MG in NS 250 ML IV SCH ×2 (00:31→13:45)
[2019-05-13] MEDS: HUMALOG SUBQ SCH ×5 (00:31→20:33)
[2019-05-13] MEDS: DUONEB (A & A) INH SCH ×4 (03:30→21:05)
[2019-05-13 04:30] LABS: BLOOD TYPE ARTERIAL; SAMPLE BLOOD
[2019-05-13 04:31] LABS: ALLEN TEST YES; BE 9.4 mmoll (-3.0-3.0); HCO3-(ACT) 32.2 mmoll (20.0-26.0); METHB 0.8 % (0.0-1.5); O2(CT) 12.8 mL/dL (15.0-23.0); O2HB 94.6 % (95.0-99.0); PCO2(98.6) 37 mmHg (35-45); PO2(98.6) 72 mmHg (60-100); SAO2 96.7 % (95.0-100.0); THB 9.6 g/dL (11.5-17.4); pH(98.6) 7.55 (7.35-7.45)
[2019-05-13 04:32] LABS: MODALITY CANNULA
[2019-05-13 06:33] LABS: BASO# 0.04 X1000 (0.0-0.2); BASO% 0.2 % (0.0-0.8); EOS# 0.16 X1000 (0.0-0.7); EOS% 0.9 % (0.0-10.0); HEMATOCRIT 28.2 % (37.0-47.0); IMM GRAN# 1.22 X1000 (0.0-0.04); IMM GRAN% 6.8 % (0.0-0.5); LYMPH# 2.78 X1000 (1.2-3.4); LYMPH% 15.4 % (20.5-51.1); MCH 29.8 PG (27-31); MCHC 31.9 g/dL (33-37); MCV 93.4 FL (81-99); MONO# 1.16 X1000 (0.11-0.59); MONO% 6.4 % (1.7-9.3); MPV 9.4 FL (7.4-10.4); NEUT# 12.71 X1000 (1.4-6.5); NEUT% 70.3 % (42.2-75.2); PLT 376 X1000 (130-400); RBC 3.02 XMIL (4.2-5.4); RDW 14.1 % (11.5-14.5); WBC 18.07 X1000 (4.8-10.8)
[2019-05-13 07:10] LABS: AGAP 12; BUN 6 mg/dL (8-22); CALCIUM 8.2 mg/dL (8.8-10.2); CHLORIDE 98 mmol/L (98-107); COSMO 272; CREATININE 0.5 mg/dL (0.5-0.9); ESTIMATED GFR > 60; GLUCOSE 108 mg/dL (70-104); POTASSIUM 2.9 mmol/L (3.5-5.1); SODIUM 137 mmol/L (136-145); TCO2 27 mmol/L (25-35)
[2019-05-13 07:30] LABS: BANDS 2 % (0-1); LYMPHS 23 % (21-51); MONO 5 % (1-9); SEGS 70 % (42-75)
--- NOTE | 2019-05-13 07:41 | Diag Imaging Result Doc PS360 ---
EXAM: US THORACENTESIS W/IMAGE GUIDE HISTORY: pleural effusion TECHNIQUE: Ultrasound-guided thoracentesis COMPARISON: None. FINDINGS: Prior to the procedure I discussed the risk and benefits with the patient. Primary risks include bleeding, infection, and pneumothorax. Questions were answered. Consent was given. The permit was signed. Ultrasound was used to localize the largest fluid collection in the left thorax. This area was cleaned and draped in the normal fashion. Lidocaine was used as a local anesthetic. Needle and catheter were advanced into the fluid collection on the first attempt without difficulty. The needle was withdrawn. The catheter was hooked to hand suction. Approximately 300 cc of yellowish fluid were withdrawn without difficulty. The catheter was then withdrawn. No immediate postprocedural complications. IMPRESSION: Ultrasound-guided thoracentesis with no immediate complication. Electronically signed by Aron Cadena 05/13/2019 7:38 AM
[2019-05-13 08:57] LABS: TOTAL PROTEIN 6.2 g/dL (6.3-8.3)
[2019-05-13] MEDS: COREG PO SCH ×2 (09:30→20:31)
[2019-05-13] MEDS: ASPIRIN EC PO SCH (09:30)
[2019-05-13] MEDS: NEURONTIN PO PRN (09:30)
[2019-05-13] MEDS: KLONOPIN PO SCH ×2 (09:31→20:30)
[2019-05-13] MEDS: DITROPAN PO SCH ×2 (09:31→20:29)
[2019-05-13] MEDS: MUCOMYST 20% INH SCH ×2 (09:57→21:05)
[2019-05-13] MEDS: TESSALON PO PRN (11:39)
[2019-05-13] MEDS: ROCEPHIN 2 GM in NS 50 ML IV SCH (13:44)
--- NOTE | 2019-05-13 14:56 | PROGRESS NOTE ---
DATE: 05/13/2019 INTERVAL HISTORY: No shyann fevers for about 36 hours, but did have some mildly elevated temperatures yesterday morning to 100.0. Still becomes short of breath with minimal exertion but pretty comfortable at rest at this point. Oxygenation proximally stable. No new complaints. No other acute events overnight. REVIEW OF SYSTEMS: Twelve-point review of system negative except as for interval history. LABS: WBC 18.0, hemoglobin 9.0, hematocrit 28.2, platelets 376,000. ABG with pH 7.55, pCO2 37, PO2 72, O2 saturation 96.7 on 2 L by nasal cannula. Sodium 137, potassium 2.9, BUN 6, creatinine 0.5, glucose 108 to 157, total protein 6.2, LDH 198. Pleural fluid studies drawn yesterday, pH 7.0. WBC 435, neutrophils 93, glucose 84, total protein 3.7, LDH 564, amylase 17. Repeat blood cultures no growth to date. Pleural fluid culture negative. VITALS: T-max 99.9 degrees, pulse 80, respirations 17, blood pressure 111/76, O2 saturation 97% on 2 L by nasal cannula. PHYSICAL EXAMINATION: General: In no acute distress. Vitals: As above. HEENT/Neck: Normocephalic, atraumatic. Moist mucous membranes. No cervical adenopathy. Cardiovascular: Regular rate and rhythm. No murmurs noted. Pulmonary: Mildly decreased breath sounds throughout. No wheezing currently. Breath sounds remain significantly decreased at the bases, left greater than right. Abdomen: Soft, nontender, nondistended. Bowel sounds positive. Extremities: Peripheral pulses intact. No clubbing or cyanosis. Neurologic: Cranial nerves grossly intact. No focal deficits identified. Psychiatric: Normal mood and affect. Awake and alert. ASSESSMENT AND PLAN: 1. Methicillin-resistant Staphylococcus aureus bacteremia. Likely pulmonary source. Day 4 of treatment on vancomycin, as that is when her most recent blood cultures were drawn. They have remained negative so far. Infectious disease following and assisting with antibiotics. 2. Urinary tract infection. Urine culture growing Escherichia coli which is causative organism. On Rocephin for treatment of that. Also with Escherichia coli and Proteus in the sputum culture, so Rocephin may help if those are pathogenic organisms there as well. 3. Left pleural effusion. Status post thoracentesis yesterday, although post thoracentesis x-ray still shows a pretty good effusion. Concern was it might be empyema, but it was reportedly pale yellow, i.e. not grossly purulent, on the tap. The pH was low but did not have that many white cells. Glucose was unremarkable, so it looks more like an uncomplicated parapneumonic effusion based on current studies. We will monitor closely and see what happens. 4. Pneumonia. Sputum culture growing out Escherichia coli and Proteus, but given Methicillin- resistant Staphylococcus aureus bacteremia, suspect Methicillin-resistant Staphylococcus aureus bacteremia is the causative organism. On Rocephin and vancomycin, as above. Improving slowly. Continue to monitor. 5. Hypokalemia. Will replete and monitor. 6. Hyperglycemia. No history of diabetes. Likely steroid induced, but we will check A1c. 7. Anemia. No signs or symptoms of bleeding. Blood counts stable. Likely anemia of chronic disease. Monitor. [facility]
[2019-05-13] MEDS: POTASSIUM CHLORIDE 20 MEQ/SWI 20 MEQ/100 ML IVPB IV SCH ×2 (15:10→17:32)
[2019-05-13] MEDS: MOTRIN PO PRN (17:09)
[2019-05-13] MEDS ORDERED: KLOR-CON POWDER PACKET PO ONE (17:34)
--- NOTE | 2019-05-13 19:06 | PROVIDER PROGRESS NOTE ---
Progress Note Dr. Rose Progress Note/Pulmonary and or critical care Subjective: The patient is sitting in the bedside chair on NC 3L with SaO2 in high 90s. She is awake and alert. She states she is feeling better. She reports no pain at this time. Input is appreciated from Dr. Richard and other teams on the case. Objective: Vital Signs: T 98.1 (low fever in last 24 hours), FL 77, RR 20, BP 117/95 and SaO2 97% on NC 3L. I/O: -275ml Physical Examination: General: Sitting in the bedside chair with no acute distress noted. HEENT: Normocephalic. Trachea midline. Mucosa pink and moist. Pupils equal round reactive to light. Respiratory: Even and unlabored. Symmetrical excursion. Auscultation reveals diminished breathing sounds and few inspiratory crackles bilaterally. CVS: Regular rate and rhythm with S1 and S2 appreciated. Abdomen: Soft. Nontender. Bowel sounds present in all 4 quadrants. Extremities: No pedal edema. Neuro: Awake and alert. Answer simple questions. Following simple commands. Labs and Radiology: Laboratory Results 05/12/19 05/12/19 05/13/19 12:20 19:58 04:20 WBC RBC Hgb Hct MCV MCH MCHC RDW Std Deviation Plt Count MPV Immature Gran % (Auto) Neut % (Auto) Lymph % (Auto) [place] % (Auto) Eos % (Auto) Baso % (Auto) Immature Gran # (Auto) Neut # (Auto) Lymph # (Auto) [place] # (Auto) Eos # (Auto) Baso # (Auto) Segmented Neutrophils Band Neutrophils Lymphocytes Monocytes Specimen Type ARTERIAL Sample Site R RADIAL pH 7.55 H pCO2 37 pO2 72 HCO3 32.2 H Base Excess 9.4 H Oxyhemoglobin 94.6 L ABG O2 Sat (Calculated) 12.8 L ABG O2 Saturation 96.7 ABG Carboxyhemoglobin 1.40 ABG Methemoglobin 0.8 Hua Test YES A-a O2 Difference 81.0 Total Hemoglobin 9.6 L Lactate 0.90 Liter Flow 2.0 Blood Gas Modality CANNULA FiO2 % 28.0 Sodium Potassium Chloride Carbon Dioxide Anion Gap BUN Creatinine Estimated GFR/1.73 m2 BUN/Creatinine Ratio Glucose POC Glucose 121 H Calculated Osmolality Calcium Lactate Dehydrogenase Total Protein AFB Smear SEE COMMENTS 05/13/19 05/13/19 05/13/19 04:30 04:30 04:30 WBC 18.07 H RBC 3.02 L Hgb 9.0 L Hct 28.2 L MCV 93.4 MCH 29.8 MCHC 31.9 L RDW Std Deviation 14.1 Plt Count 376 MPV 9.4 Immature Gran % (Auto) 6.8 H Neut % (Auto) 70.3 Lymph % (Auto) 15.4 L [place] % (Auto) 6.4 Eos % (Auto) 0.9 Baso % (Auto) 0.2 Immature Gran # (Auto) 1.22 H Neut # (Auto) 12.71 H Lymph # (Auto) 2.78 [place] # (Auto) 1.16 H Eos # (Auto) 0.16 Baso # (Auto) 0.04 Segmented Neutrophils 70 Band Neutrophils 2 H Lymphocytes 23 Monocytes 5 Specimen Type Sample Site pH pCO2 pO2 HCO3 Base Excess Oxyhemoglobin ABG O2 Sat (Calculated) ABG O2 Saturation ABG Carboxyhemoglobin ABG Methemoglobin Hua Test A-a O2 Difference Total Hemoglobin Lactate Liter Flow Blood Gas Modality FiO2 % Sodium 137 Potassium 2.9 L Chloride 98 Carbon Dioxide 27 Anion Gap 12 BUN 6 L Creatinine 0.5 Estimated GFR/1.73 m2 > 60 BUN/Creatinine Ratio 12 Glucose 108 H POC Glucose Calculated Osmolality 272 Calcium 8.2 L Lactate Dehydrogenase 198 Total Protein 6.2 L AFB Smear 05/13/19 05/13/19 05/13/19 06:08 11:31 17:13 WBC RBC Hgb Hct MCV MCH MCHC RDW Std Deviation Plt Count MPV Immature Gran % (Auto) Neut % (Auto) Lymph % (Auto) [place] % (Auto) Eos % (Auto) Baso % (Auto) Immature Gran # (Auto) Neut # (Auto) Lymph # (Auto) [place] # (Auto) Eos # (Auto) Baso # (Auto) Segmented Neutrophils Band Neutrophils Lymphocytes Monocytes Specimen Type Sample Site pH pCO2 pO2 HCO3 Base Excess Oxyhemoglobin ABG O2 Sat (Calculated) ABG O2 Saturation ABG Carboxyhemoglobin ABG Methemoglobin Hua Test A-a O2 Difference Total Hemoglobin Lactate Liter Flow Blood Gas Modality FiO2 % Sodium Potassium Chloride Carbon Dioxide Anion Gap BUN Creatinine Estimated GFR/1.73 m2 BUN/Creatinine Ratio Glucose POC Glucose 98 157 H D 113 H Calculated Osmolality Calcium Lactate Dehydrogenase Total Protein AFB Smear Assessment: Acute respiratory failure. Relatively stable. Patient has been staying on NC 2- 3L for a few days and tolerates well with SaO2 at high 90s. Aspiration pneumonia. Sputum culture positive to E. coli and Proteus Mirabilis. Increased left-sided pleural effusion. Thoracentesis on 05/12/19 with 300 cc of yellowish fluid aspirated. Shock, improved. She stays off pressor. Influenza B. s/p Tamiflu. Staphylococcus aureus bacteremia UTI. Diabetes mellitus. Prognosis guarded. Plan: Antibiotics (Ceftriaxone and Vancomycin). Bronchodilators. Mucomyst. We titrated supplemental oxygen to patients needs per clinical protocol. We keep monitoring patients clinical change closely. We reviewed labs from pleural effusion. We are not planning Chest tube placement at this time as patient is clinically improving. We will repeat CT next Wednesday and decide from there. DVT prophylaxis. Ok to be transferred to the medical floor from a senior director creative services standpoint. Total evaluation time in minutes: 32.
[2019-05-13] MEDS: AMBIEN PO PRN (20:28)
[2019-05-13] MEDS: PRAVACHOL PO SCH (20:29)
[2019-05-13] MEDS: SINGULAIR PO SCH (20:30)
[2019-05-13] MEDS: REMERON SOLTAB PO SCH (20:31)
[2019-05-14] MEDS: NORCO-7.5 PO PRN ×4 (03:06→21:46)
[2019-05-14] MEDS: DUONEB (A & A) INH SCH ×4 (03:15→23:37)
[2019-05-14 04:45] LABS: ALLEN TEST YES; BE 5.9 mmoll (-3.0-3.0); BLOOD TYPE ARTERIAL; HCO3-(ACT) 29.5 mmoll (20.0-26.0); PCO2(98.6) 39 mmHg (35-45); PO2(98.6) 71 mmHg (60-100); SAMPLE BLOOD; pH(98.6) 7.49 (7.35-7.45)
[2019-05-14 04:46] LABS: MODALITY CANNULA
[2019-05-14] MEDS: HUMALOG SUBQ SCH ×4 (06:07→20:23)
[2019-05-14 07:10] LABS: AGAP 12; BUN 6 mg/dL (8-22); CALCIUM 7.9 mg/dL (8.8-10.2); CHLORIDE 100 mmol/L (98-107); COSMO 276; CREATININE 0.5 mg/dL (0.5-0.9); ESTIMATED GFR > 60; GLUCOSE 146 mg/dL (70-104); POTASSIUM 3.3 mmol/L (3.5-5.1); SODIUM 138 mmol/L (136-145); TCO2 26 mmol/L (25-35)
[2019-05-14 07:14] LABS: BASO# 0.02 X1000 (0.0-0.2); BASO% 0.1 % (0.0-0.8); EOS# 0.12 X1000 (0.0-0.7); EOS% 0.8 % (0.0-10.0); HEMOGLOBIN 8.5 g/dL (12.0-16.0); IMM GRAN# 0.63 X1000 (0.0-0.04); IMM GRAN% 4.2 % (0.0-0.5); LYMPH# 1.84 X1000 (1.2-3.4); LYMPH% 12.3 % (20.5-51.1); MCH 29.6 PG (27-31); MCHC 31.5 g/dL (33-37); MCV 94.1 FL (81-99); MONO# 0.96 X1000 (0.11-0.59); MONO% 6.4 % (1.7-9.3); MPV 9.4 FL (7.4-10.4); NEUT# 11.44 X1000 (1.4-6.5); NEUT% 76.2 % (42.2-75.2); PLT 338 X1000 (130-400); RBC 2.87 XMIL (4.2-5.4); RDW 14.1 % (11.5-14.5); WBC 15.01 X1000 (4.8-10.8)
[2019-05-14] MEDS ORDERED: POTASSIUM CHLORIDE 20 MEQ/SWI 20 MEQ/100 ML IVPB IV SCH (08:00)
[2019-05-14 08:13] LABS: HEMOGLOBIN A1C 5.7 % (4.8-6.0)
[2019-05-14] MEDS: MUCOMYST 20% INH SCH ×2 (09:53→23:36)
[2019-05-14] MEDS: COREG PO SCH ×2 (10:10→20:18)
[2019-05-14] MEDS: KLONOPIN PO SCH ×2 (10:10→20:17)
[2019-05-14] MEDS: ASPIRIN EC PO SCH (10:10)
[2019-05-14] MEDS: DITROPAN PO SCH ×2 (10:10→20:17)
[2019-05-14] MEDS ORDERED: KLOR-CON POWDER PACKET PO ONE (10:13)
[2019-05-14] MEDS: ROCEPHIN 2 GM in NS 50 ML IV SCH (14:15)
[2019-05-14] MEDS: VANCOMYCIN 1,600 MG in NS 250 ML IV SCH (14:16)
--- NOTE | 2019-05-14 15:05 | PROGRESS NOTE ---
DATE: 05/14/2019 INTERVAL HISTORY: Patient doing quite well. Respiratory status improving rapidly. No new complaint, no acute events overnight. REVIEW OF SYSTEMS: Twelve point review of systems negative except as per interval history. LABS: WBC 15.0, hemoglobin 8.5, hematocrit 27.0, platelets 338,000. ABG with pH 7.49, pCO2 39, PO2 71 on 2 L by nasal cannula. Sodium 138, potassium 3.3, BUN 6, creatinine 0.5, glucose 138 to 146. VITALS: T-max 99.8, pulse 85, respirations 22, blood pressure 102/78, O2 saturation 94% on 2 L by nasal cannula . PHYSICAL EXAM: General: No acute distress. Vitals as above. HEENT: Normocephalic, atraumatic. Moist mucous membranes. No cervical adenopathy. Cardiovascular: Regular rate and rhythm. No murmurs noted. Pulmonary: Mildly decreased breath sounds throughout stable, no wheezing. Still little decreased at the bases left greater than right. Abdomen: Soft, nontender, nondistended, bowel sounds positive. Extremities: Peripheral pulses intact. No clubbing or cyanosis. Neurologic: Cranial nerves grossly intact. Mild global weakness but no focal deficits identified. Psychiatric: Normal mood and affect, awake, alert, cooperative. ASSESSMENT AND PLAN: 1. Methicillin-resistant Staphylococcus aureus bacteremia. Likely pulmonary source. Day 5 of treatment on vanc from time of 1st negative cultures. Infectious Disease following assisting with antibiotics. 2. Urinary tract infection, urine culture growing Escherichia coli. Patient on Rocephin for that which we will continue. 3. Pneumonia and left parapneumonic effusion. Status post thoracentesis. Patient improved since then. Studies most consistent with complicated parapneumonic effusion and patient improving so does not appear to need chest to at this time. Continue antibiotics as above and monitor. 4. Hypokalemia still low. Will further replete and monitor. 5. Hyperglycemia, A1c 5.7 within normal limits so likely steroid induced. No need for further intervention. 6. Anemia, blood counts largely stable likely anemia of chronic disease but will continue to monitor and transfuse if necessary. 7. Disposition. Patient stable for the floor at this point. Will move out of ICU. If she continues to improve then may be able to discuss putting a PICC line and discharge in the next couple days.
--- NOTE | 2019-05-14 17:06 | PROVIDER PROGRESS NOTE ---
Progress Note Dr. Rose Progress Note/Pulmonary and or critical care Subjective: The patient is lying in bed with no acute distress noted. She is on NC 2L and tolerates well. She reports no pain. She has BM daily. She states she is ready to go home. Input is appreciated from Dr. Sherwood and other teams on the case. Objective: Vital Signs: T 99.8 (low fever in last 24 hours), [place] 90, RR 23, BP 124/58 and SaO2 94% on NC 2L. I/O: -450ml Physical Examination: General: Lying in bed with no acute distress noted. HEENT: Normocephalic. Trachea midline. Mucosa pink and moist. Pupils equal round reactive to light. Respiratory: Even and unlabored. Symmetrical excursion. Auscultation reveals diminished breathing sounds and few inspiratory crackles bilaterally. CVS: Regular rate and rhythm with S1 and S2 appreciated. Abdomen: Soft. Nontender. Bowel sounds present in all 4 quadrants. Extremities: No pedal edema. Neuro: Awake and alert. Answer simple questions. Following simple commands. Labs and Radiology: Laboratory Results 05/13/19 05/13/19 05/14/19 17:13 20:20 00:58 WBC RBC Hgb Hct MCV MCH MCHC RDW Std Deviation Plt Count MPV Immature Gran % (Auto) Neut % (Auto) Lymph % (Auto) [place] % (Auto) Eos % (Auto) Baso % (Auto) Immature Gran # (Auto) Neut # (Auto) Lymph # (Auto) [place] # (Auto) Eos # (Auto) Baso # (Auto) Specimen Type Sample Site pH pCO2 pO2 HCO3 Base Excess Hua Test A-a O2 Difference Lactate Liter Flow Blood Gas Modality FiO2 % Sodium Potassium Chloride Carbon Dioxide Anion Gap BUN Creatinine Estimated GFR/1.73 m2 BUN/Creatinine Ratio Glucose POC Glucose 113 H 147 H Estimat Average Glucose Hemoglobin A1c Calculated Osmolality Calcium Random Vancomycin 20.90 05/14/19 05/14/19 05/14/19 04:15 04:15 04:15 WBC 15.01 H RBC 2.87 L Hgb 8.5 L Hct 27.0 L MCV 94.1 MCH 29.6 MCHC 31.5 L RDW Std Deviation 14.1 Plt Count 338 MPV 9.4 Immature Gran % (Auto) 4.2 H Neut % (Auto) 76.2 H Lymph % (Auto) 12.3 L [place] % (Auto) 6.4 Eos % (Auto) 0.8 Baso % (Auto) 0.1 Immature Gran # (Auto) 0.63 H Neut # (Auto) 11.44 H Lymph # (Auto) 1.84 [place] # (Auto) 0.96 H Eos # (Auto) 0.12 Baso # (Auto) 0.02 Specimen Type Sample Site pH pCO2 pO2 HCO3 Base Excess Hua Test A-a O2 Difference Lactate Liter Flow Blood Gas Modality FiO2 % Sodium 138 Potassium 3.3 L Chloride 100 Carbon Dioxide 26 Anion Gap 12 BUN 6 L Creatinine 0.5 Estimated GFR/1.73 m2 > 60 BUN/Creatinine Ratio 12 Glucose 146 H POC Glucose Estimat Average Glucose 117 Hemoglobin A1c 5.7 Calculated Osmolality 276 Calcium 7.9 L Random Vancomycin 05/14/19 05/14/19 05/14/19 04:45 05:55 11:07 WBC RBC Hgb Hct MCV MCH MCHC RDW Std Deviation Plt Count MPV Immature Gran % (Auto) Neut % (Auto) Lymph % (Auto) [place] % (Auto) Eos % (Auto) Baso % (Auto) Immature Gran # (Auto) Neut # (Auto) Lymph # (Auto) [place] # (Auto) Eos # (Auto) Baso # (Auto) Specimen Type ARTERIAL Sample Site R RADIAL pH 7.49 H pCO2 39 pO2 71 HCO3 29.5 H Base Excess 5.9 H Hua Test YES A-a O2 Difference 80.0 Lactate 1.00 Liter Flow 2.0 Blood Gas Modality CANNULA FiO2 % 28.0 Sodium Potassium Chloride Carbon Dioxide Anion Gap BUN Creatinine Estimated GFR/1.73 m2 BUN/Creatinine Ratio Glucose POC Glucose 131 H 138 H Estimat Average Glucose Hemoglobin A1c Calculated Osmolality Calcium Random Vancomycin 05/14/19 15:44 WBC RBC Hgb Hct MCV MCH MCHC RDW Std Deviation Plt Count MPV Immature Gran % (Auto) Neut % (Auto) Lymph % (Auto) [place] % (Auto) Eos % (Auto) Baso % (Auto) Immature Gran # (Auto) Neut # (Auto) Lymph # (Auto) [place] # (Auto) Eos # (Auto) Baso # (Auto) Specimen Type Sample Site pH pCO2 pO2 HCO3 Base Excess Hua Test A-a O2 Difference Lactate Liter Flow Blood Gas Modality FiO2 % Sodium Potassium Chloride Carbon Dioxide Anion Gap BUN Creatinine Estimated GFR/1.73 m2 BUN/Creatinine Ratio Glucose POC Glucose 118 H Estimat Average Glucose Hemoglobin A1c Calculated Osmolality Calcium Random Vancomycin Assessment: Acute respiratory failure. Relatively stable. Patient has been staying on NC 2- 3L for a few days and tolerates well with SaO2 at high 90s. Aspiration pneumonia. Sputum culture positive to E. coli and Proteus Mirabilis on 05/06/19. Increased left-sided pleural effusion. Thoracentesis on 05/12/19 with 300 cc of yellowish fluid aspirated. The fluid studies showed complicated parapneumonic effusion, but no empyema. Shock. Resolved. Influenza B. s/p Tamiflu. Staphylococcus aureus bacteremia. Resolved. Blood culture on 05/10/19 showed no growth. UTI. Diabetes mellitus. Prognosis guarded. Plan: Antibiotics (Ceftriaxone and Vancomycin). Bronchodilators. Mucomyst. Weaning oxygen as tolerated. We titrated supplemental oxygen to patients needs per clinical protocol. We keep monitoring patients clinical change closely. We reviewed labs from pleural effusion. We are not planning Chest tube placement at this time as patient is clinically improving. We will repeat CT next Wednesday and decide from there. DVT prophylaxis. Ok to be transferred to the medical floor from a senior instructor standpoint. Total evaluation time in minutes: 31.
[2019-05-14] MEDS: TYLENOL PO PRN (18:15)
[2019-05-14] MEDS: PRAVACHOL PO SCH (20:17)
[2019-05-14] MEDS: SINGULAIR PO SCH (20:18)
[2019-05-14] MEDS: REMERON SOLTAB PO SCH (20:19)
[2019-05-14] MEDS: NEURONTIN PO PRN (20:23)
[2019-05-14] MEDS: AMBIEN PO PRN (20:25)
[2019-05-15] MEDS: VANCOMYCIN 1,600 MG in NS 250 ML IV SCH ×2 (01:03→13:51)
[2019-05-15] MEDS: TYLENOL PO PRN (01:12)
[2019-05-15] MEDS: DUONEB (A & A) INH SCH ×5 (02:45→23:30)
[2019-05-15] MEDS: NORCO-7.5 PO PRN ×3 (04:02→18:53)
[2019-05-15 04:43] LABS: ALLEN TEST YES; BE 4.7 mmoll (-3.0-3.0); BLOOD TYPE ARTERIAL; HCO3-(ACT) 28.5 mmoll (20.0-26.0); PCO2(98.6) 37 mmHg (35-45); PO2(98.6) 65 mmHg (60-100); SAMPLE BLOOD; pH(98.6) 7.49 (7.35-7.45)
[2019-05-15 04:50] LABS: MODALITY CANNULA
[2019-05-15] MEDS ORDERED: CALMOSEPTINE OINTMENT TOP PRN (05:31)
[2019-05-15 05:36] LABS: BASO# 0.02 X1000 (0.0-0.2); BASO% 0.1 % (0.0-0.8); EOS# 0.14 X1000 (0.0-0.7); HEMATOCRIT 23.6 % (37.0-47.0); HEMOGLOBIN 7.5 g/dL (12.0-16.0); IMM GRAN# 0.23 X1000 (0.0-0.04); IMM GRAN% 1.7 % (0.0-0.5); LYMPH# 2.45 X1000 (1.2-3.4); LYMPH% 17.7 % (20.5-51.1); MCHC 31.8 g/dL (33-37); MCV 94.4 FL (81-99); MONO# 0.88 X1000 (0.11-0.59); MONO% 6.3 % (1.7-9.3); MPV 9.2 FL (7.4-10.4); NEUT# 10.14 X1000 (1.4-6.5); NEUT% 73.2 % (42.2-75.2); PLT 335 X1000 (130-400); RDW 13.9 % (11.5-14.5); WBC 13.86 X1000 (4.8-10.8)
[2019-05-15 05:48] LABS: AGAP 11; BUN 7 mg/dL (8-22); CALCIUM 7.8 mg/dL (8.8-10.2); CHLORIDE 100 mmol/L (98-107); COSMO 272; CREATININE 0.6 mg/dL (0.5-0.9); ESTIMATED GFR > 60; GLUCOSE 110 mg/dL (70-104); POTASSIUM 3.4 mmol/L (3.5-5.1); SODIUM 137 mmol/L (136-145); TCO2 26 mmol/L (25-35)
[2019-05-15] MEDS: HUMALOG SUBQ SCH ×4 (06:17→21:04)
--- NOTE | 2019-05-15 07:37 | Diag Imaging Result Doc PS360 ---
CHEST-1 VIEW - 05/15/2019 INDICATION: SOB COMPARISON: 05/12/2019 FINDINGS: Stable significant opacification of the left lung. Heart size remains normal. No new infiltrates. IMPRESSION: No change from prior. Electronically signed by Rock Nixon 05/15/2019 7:34 AM
[2019-05-15] MEDS: ASPIRIN EC PO SCH (09:49)
[2019-05-15] MEDS: KLONOPIN PO SCH ×2 (09:49→20:47)
[2019-05-15] MEDS: DITROPAN PO SCH ×2 (09:49→20:47)
[2019-05-15] MEDS: COREG PO SCH ×2 (09:49→20:47)
[2019-05-15] MEDS: MUCOMYST 20% INH SCH ×2 (10:04→23:30)
--- NOTE | 2019-05-15 14:30 | PROGRESS NOTE ---
DATE: 05/15/2019 SUBJECTIVE: Patient has no major complaints. OBJECTIVE: Blood pressure is 125/47, heart rate 83, respiratory rate 22, temperature 99 degrees, 97% on no O2.Cardiovascular: Regular rate and rhythm. Pulmonary: Bilateral breath sounds clear to auscultation. GI: Soft, nontender, nondistended. Bowel sounds are positive. LABORATORY DATA: White count is 13, hemoglobin and hematocrit 7 and 23, platelets 335,000, pH 7.49, pCO2 37, PaO2 65, basic was normal. Potassium 3.4. PROBLEM LIST: 1. Methicillin-resistant Staphylococcus aureus bacteremia for sure a pulmonary source is common, but the sputum did not grow out anything. She is on day 6 of treatments. I do not know what they recommended. The last recommendation on the , there is no recommendation. I do not know and I guess we will treat for 14 days total. 2. Escherichia coli urinary tract infection. She is on Rocephin and day of treatment is 6. 3. Pneumonia with Escherichia coli and Proteus mirabilis in sputum culture, also on Rocephin. 4. Large pleural effusion which based on parameters did appear to be exudative, however was not technically an empyema but LDH was high, total protein was half the other total protein but cultures thus far negative at least from the fluid and plan is to discharge on IV antibiotics. We will go ahead and progress with a PICC line. She is a long-term patient I think at the facility, so that should work. cc: Jone Richard MD
[2019-05-15] MEDS: ROCEPHIN 2 GM in NS 50 ML IV SCH (15:43)
[2019-05-15] MEDS ORDERED: MOTRIN PO PRN (17:01)
[2019-05-15] MEDS: NEURONTIN PO PRN (17:04)
[2019-05-15] MEDS: SINGULAIR PO SCH (20:47)
[2019-05-15] MEDS: PRAVACHOL PO SCH (20:47)
[2019-05-15] MEDS: REMERON SOLTAB PO SCH (20:47)
[2019-05-15] MEDS: AMBIEN PO PRN (21:03)
[2019-05-16] MEDS: VANCOMYCIN 1,600 MG in NS 250 ML IV SCH ×2 (02:24→15:55)
[2019-05-16] MEDS: NORCO-7.5 PO PRN ×4 (02:32→23:08)
[2019-05-16] MEDS: DUONEB (A & A) INH SCH ×6 (03:35→23:15)
[2019-05-16 05:37] LABS: AGAP 11; BUN 7 mg/dL (8-22); CALCIUM 8.3 mg/dL (8.8-10.2); CHLORIDE 101 mmol/L (98-107); COSMO 272; CREATININE 0.5 mg/dL (0.5-0.9); ESTIMATED GFR > 60; GLUCOSE 137 mg/dL (70-104); POTASSIUM 3.8 mmol/L (3.5-5.1); SODIUM 136 mmol/L (136-145); TCO2 24 mmol/L (25-35)
[2019-05-16 05:40] LABS: BASO# 0.03 X1000 (0.0-0.2); BASO% 0.3 % (0.0-0.8); EOS# 0.12 X1000 (0.0-0.7); HEMOGLOBIN 7.7 g/dL (12.0-16.0); IMM GRAN# 0.14 X1000 (0.0-0.04); IMM GRAN% 1.2 % (0.0-0.5); LYMPH# 1.84 X1000 (1.2-3.4); LYMPH% 15.4 % (20.5-51.1); MCH 29.4 PG (27-31); MCHC 30.8 g/dL (33-37); MCV 95.4 FL (81-99); MONO# 0.73 X1000 (0.11-0.59); MONO% 6.1 % (1.7-9.3); MPV 9.3 FL (7.4-10.4); NEUT# 9.05 X1000 (1.4-6.5); PLT 311 X1000 (130-400); RBC 2.62 XMIL (4.2-5.4); WBC 11.91 X1000 (4.8-10.8)
[2019-05-16] MEDS ORDERED: LASIX IV ONE (06:00)
[2019-05-16] MEDS: HUMALOG SUBQ SCH ×4 (06:15→20:10)
--- NOTE | 2019-05-16 07:00 | PULMONOLOGY PROGRESS NOTE ---
DATE: 05/15/2019 SUBJECTIVE: The patient is awake, alert, and conversant. She reports she feels better. She denies shortness of breath at rest. OBJECTIVE: Vital Signs: Maximum temperature in the last 24 hours is 100.6 degrees, blood pressure 125/47, heart rate 82, respiratory rate 20, oxygen saturation 97% on 2 L per nasal cannula. HEENT: Pupils are equal and reactive. Oropharynx appears clear. Neck: Supple. Chest: Diminished breath sounds, left base. Cardiac: S1, S2. Abdomen: Soft. Extremities: Without edema. LABORATORY DATA: White blood count 13.86, hemoglobin 7.5, platelet count 335,000. Arterial blood gas reveals a pH of 7.49, pCO2 of 37, PO2 of 65. Sodium 137, potassium 3.4, chloride 100, bicarbonate 26, BUN 7, creatinine 0.6. MICROBIOLOGY: Negative growth from the pleural fluid. IMPRESSION: A 63-year-old with: 1. Aspiration pneumonia. 2. Left-sided pleural effusion. This is a parapneumonic effusion with no evidence of empyema. 3. Staphylococcus aureus bacteremia. 4. Hypoxemic respiratory failure. 5. Diabetes mellitus. 6. Urinary tract infection. PLAN: 1. Continue antibiotics. 2. Continue oxygen. 3. Continue bronchodilators. 4. Initiate incentive spirometry. 5. Diuretic trial tomorrow morning. cc: Joe Vieyra MD
[2019-05-16] MEDS: MUCOMYST 20% INH SCH ×2 (08:57→20:44)
[2019-05-16] MEDS: KLONOPIN PO SCH ×2 (09:40→20:08)
[2019-05-16] MEDS: ASPIRIN EC PO SCH (09:40)
[2019-05-16] MEDS: NEURONTIN PO PRN ×2 (09:41→14:57)
[2019-05-16] MEDS: DITROPAN PO SCH ×2 (09:41→20:08)
[2019-05-16] MEDS: COREG PO SCH ×2 (09:56→20:09)
[2019-05-16] MEDS ORDERED: NS 250 ML ONE (13:47)
--- NOTE | 2019-05-16 14:41 | INFECTIOUS DISEASE PROGRESS NO ---
DATE: 05/16/2019 PRESENT ILLNESS: Ms. Yen is being treated for a methicillin-resistant Staph aureus bacteremia. She also has an Escherichia coli and Proteus that have grown in her sputum with aspiration pneumonia, and Escherichia coli urinary tract infection. She has also had a persistent leukocytosis, which is continuing to improve. She is status post thoracentesis with 300cc fluid removed from the left side. MEDICATIONS: She is on day 7 of Rocephin 2 grams IV every 24 hours. She is also on IV vancomycin per pharmacy dosing. Based on her sterile blood cultures, today is day 6 of a 14-day treatment for her bacteremia. PHYSICAL EXAMINATION: Vital Signs: Temperature is 98.4 degrees, pulse rate 70, respiratory rate 17, blood pressure 100/48, O2 saturation is 98% on 3 L nasal cannula. General: This is a chronically ill-appearing, middle-aged female. She is lying in the bed, currently in no acute distress. HEENT: Atraumatic, normocephalic. Oral mucous membranes are pink and dry. Conjunctivae are pale. Neck: Supple. Trachea is midline. Cardiovascular: Heart rate and rhythm are regular. Normal sinus rhythm on the monitor. Respiratory: Lung sounds are bilaterally diminished in the mid and bases, and clear in the upper lobes. Abdomen: Soft, round, and mildly tender to palpation. Bowel sounds are active. Neurologic: She is awake, alert, and oriented, with severe limitations of movement to her lower extremities. IMAGING AND LABORATORY DATA: Today, her white count is 11.91, hemoglobin 7.7, platelet count 311,000. Creatinine is 0.5, estimated GFR is greater than 60. Looking back, her thoracentesis done on 05/12/2019 showed WBCs 435 with 93% poly nuclear and 7% mononuclear. Her AFB and fungal smear of the pleural fluid showed no growth, and her immunoglobulins are normal at 730. Previously, she started out with a methicillin-resistant Staph aureus in her blood, had an Escherichia coli in her urine, and an Escherichia coli and Proteus mirabilis in her sputum. Cultures have been negative since 05/10/2019, and there has been no growth on the pleural fluid from the thoracentesis. No imaging reports today, although yesterday she did have a chest x-ray, and it showed is a stable, significant opacification of the left lung with no new infiltrates. ASSESSMENT AND PLAN: Ms. Yen has a methicillin-resistant staphylococcus aureus bacteremia, pneumonia, and a urinary tract infection. Her leukocytosis continues to improve. She states she is feeling better. For now, we will continue the Rocephin for her urinary tract infection and pneumonia, and continue the vancomycin for her bacteremia, which may also treat the possibility of methicillin-resistant staphylococcus aureus in her sputum, which did not grow. Based on her sterile blood cultures, today is day 6 of treatment for her bacteremia. She will need a total of 14 days. The plan is to send her back to the long-term tomorrow. The PICC line placement is in progress. Orders have been written out for another week of Rocephin and vancomycin, as well as labs to be drawn. We will see her in the office next week, and then recheck a chest x-ray. Hopefully, we will be able to discontinue her PICC line, since she will have completed 2 weeks of treatment for the bacteremia, and give her oral antibiotics if needed for the pneumonia. COMORBIDITIES: Include cigarette smoking with chronic obstructive pulmonary disease, gastroesophageal reflux disease, diabetes mellitus, seizure disorder, and the patient is a resident of the long-term. Dictated by KELBY Lowry for Jone Richard MD cc: Jone Richard MD [facility]
[2019-05-16 14:56] LABS: INR 1.16; PROTIME 14.9 Seconds (11.0-16.0)
[2019-05-16] MEDS: TYLENOL PO PRN (14:57)
[2019-05-16] MEDS: ROCEPHIN 2 GM in NS 50 ML IV SCH (14:57)
[2019-05-16] MEDS: PRAVACHOL PO SCH (20:08)
[2019-05-16] MEDS: SINGULAIR PO SCH (20:08)
[2019-05-16] MEDS: REMERON SOLTAB PO SCH (20:09)
--- NOTE | 2019-05-16 20:13 | PULMONOLOGY PROGRESS NOTE ---
DATE: 05/16/2019 SUBJECTIVE: The patient is awake, alert, and conversant. She reports minimal sputum production. She reports she feels better and continues to improve. OBJECTIVE: Vital signs: Maximum temperature in the last 24 hours is 100.7 degrees, BP 101/44, heart rate 71, respiratory rate 24, oxygen saturation 91%. HEENT: Pupils are equal and reactive. Oropharynx appears clear. Neck: Supple. Chest reveals diminished breath sounds at the left base with marginal improvement. Cardiac Exam: S1, S2. Abdomen: Obese and soft. Extremities: Without edema. LABORATORIES: White blood count 11.91, hemoglobin 7.7, platelet count 311,000, sodium 136, potassium 3.8, chloride 101, bicarbonate 24, BUN 7, creatinine 0.5. MICROBIOLOGY: Reveals no new data. IMPRESSION: A 63-year-old with: 1. Staphylococcus aureus bacteremia. 2. Parapneumonic effusion. 3. Urinary tract infection. 4. Hypoxemic respiratory failure. 5. Diabetes mellitus. DISCUSSION: A 63-year-old with problems outlined above. She continues to improve. Her shortness of breath has resolved. She has minimal sputum production. She has slight increased breath sounds in the left base. PLAN: 1. Anticipate discharge on antibiotics as outlined by Chin Barragan CRNP. 2. Continue incentive spirometry. 3. Continue bronchodilators. 4. I am available for followup chest x-ray in my office in 2 weeks after discharge. cc: Joe Vieyra MD
[2019-05-17] MEDS: VANCOMYCIN 1,600 MG in NS 250 ML IV SCH ×2 (02:10→15:48)
[2019-05-17] MEDS: DUONEB (A & A) INH SCH ×2 (03:05→09:10)
[2019-05-17 05:31] LABS: BASO# 0.02 X1000 (0.0-0.2); BASO% 0.2 % (0.0-0.8); EOS# 0.13 X1000 (0.0-0.7); EOS% 1.2 % (0.0-10.0); HEMATOCRIT 25.4 % (37.0-47.0); HEMOGLOBIN 7.8 g/dL (12.0-16.0); IMM GRAN% 0.9 % (0.0-0.5); LYMPH# 2.26 X1000 (1.2-3.4); LYMPH% 20.2 % (20.5-51.1); MCHC 30.7 g/dL (33-37); MCV 94.4 FL (81-99); MONO# 0.62 X1000 (0.11-0.59); MONO% 5.6 % (1.7-9.3); MPV 9.4 FL (7.4-10.4); NEUT# 8.04 X1000 (1.4-6.5); NEUT% 71.9 % (42.2-75.2); PLT 395 X1000 (130-400); RBC 2.69 XMIL (4.2-5.4); RDW 13.8 % (11.5-14.5); WBC 11.17 X1000 (4.8-10.8)
[2019-05-17 05:47] LABS: AGAP 11; BUN 8 mg/dL (8-22); CHLORIDE 95 mmol/L (98-107); COSMO 267; CREATININE 0.6 mg/dL (0.5-0.9); ESTIMATED GFR > 60; GLUCOSE 109 mg/dL (70-104); POTASSIUM 3.4 mmol/L (3.5-5.1); SODIUM 134 mmol/L (136-145); TCO2 28 mmol/L (25-35)
[2019-05-17] MEDS: HUMALOG SUBQ SCH ×2 (06:00→12:05)
[2019-05-17] MEDS: NORCO-7.5 PO PRN ×2 (07:55→13:51)
[2019-05-17] MEDS: KLONOPIN PO SCH (08:47)
[2019-05-17] MEDS: DITROPAN PO SCH (08:47)
[2019-05-17] MEDS: ASPIRIN EC PO SCH (08:47)
[2019-05-17] MEDS: COREG PO SCH (08:47)
[2019-05-17] MEDS: MUCOMYST 20% INH SCH (09:10)
--- NOTE | 2019-05-17 11:19 | DISCHARGE SUMMARY ---
ADMISSION DATE: 05/06/2019 DISCHARGE DATE: DISCHARGE DIAGNOSES: 1. Acute influenza B. 2. Methicillin-resistant Staphylococcus aureus bacteremia. 3. Escherichia coli urinary tract infection. 4. Escherichia coli and Proteus mirabilis pneumonia. 5. Exudative pleural effusion, but no evidence of empyema. HISTORY AND HOSPITAL COURSE: Briefly, this is a 63-year-old female from a shelter who came in with shortness of breath and fever. She was admitted for her multiple issues. She was on a sepsis protocol. Initially, she was on Levophed. She was placed on Tamiflu. She was placed on Zosyn initially, but then with her allergy was changed to Zyvox, and I think we put her on something else, Zyvox and cefepime. Echocardiogram was obtained because there was concern over heart failure, and also she had positive blood cultures. Ejection fraction was 55%. There was no major other issues there. Pulmonary was consulted because of the respiratory failure. She had influenza B, and she was placed on cefepime. Dr. Vieyra was consulted, recommended Tamiflu and antibiotics. Her blood cultures grew out 1/2 positive for MRSA. Her urine culture grew out Escherichia coli, which was fairly sensitive, and her sputum grew out Escherichia coli and Proteus mirabilis with various sensitivities but was right sensitive to cefazolin, both in urine and sputum. Infectious Disease was consulted per Dr. Daniels who recommended vancomycin and Rocephin. She still had a very concerning cough. I think she had a speech therapy evaluation, and they felt that the patient was on a mechanical soft diet and could be stable. She was maintained on her antibiotics. We ended up doing a chest CT because she had a left lung left lower lobe infiltrate and a loculated pleural effusion. She ended up undergoing thoracentesis on the and 300 mL of fluid were removed. Her chest x-ray showed left pleural effusion. She has still had opacification of her left lung. Pulmonary on the , now she was stabilized. I guess her x- rays still showed a collection, but we will do IV antibiotics for a total of 2 weeks. She had negative blood cultures on the so that will be technically day 1 of her antibiotics. She will need a repeat chest x-ray in 2 weeks, and then she may need repeat thoracentesis if persistent. The patient is stable for discharge. DISCHARGE MEDICATIONS: Include vancomycin and Rocephin through the . This is a [id number] encounter note with KELBY Juares. TIME SPENT: A 32 minute discharge. cc: Jone Richard MD
[2019-05-17] MEDS: NEURONTIN PO PRN (12:05)
[2019-05-17 12:10] VITALS: BP 94/48
[2019-05-17] MEDS: ROCEPHIN 2 GM in NS 50 ML IV SCH (13:51)
--- NOTE | 2019-05-17 22:51 | DISCHARGE SUMMARY ---
ADMISSION DATE: 05/06/2019 DISCHARGE DATE: 05/17/2019 ADMISSION DIAGNOSES: 1. Pneumonia. 2. Influenza B. 3. Urinary tract infection. 4. Acute hypoxemic respiratory failure. 5. Acute kidney injury. 6. Congestive heart failure. 7. Hypotension. 8. History of hypertension. 9. Diabetes mellitus type 2. DISCHARGE DIAGNOSES: 1. Influenza B. 2. Escherichia coli urinary tract infection. 3. Escherichia coli pneumonia. 4. Methicillin-resistant Staphylococcus aureus (MRSA) bacteremia. 5. History of influenza B. 6. Left pleural effusion. CONSULTATIONS: 1. Dr. Vieyra. 2. Dr. Daniels. 3. PICC line placement. SURGERIES AND PROCEDURES: Ultrasound-guided thoracentesis on 05/12/2019 where 300 mL of fluid was removed. HOSPITAL COURSE: On 05/06/2019, Ms. Miracle Yen, a 63-year-old female from a assisted, came in via EMS secondary to hypoxemia. Apparently, her oxygen was kinked but she was also hypotensive, low blood pressure. There was concern for aspiration. She tested positive for influenza B. She was found to have a left lower lobe pneumonia and secondary to the sepsis along with the hypotension, she was sent to the ICU where she was initiated on IV fluid hydration, Levophed drip, but wanted to watch closely for any risk of exacerbating of fluid volume overload secondary to the history of having congestive heart failure. During her stay, her workup included blood cultures which ended up being positive for MRSA. It was resistant to oxacillin and penicillin. The urine grew out E coli, which was resistant to ampicillin. It was ESBL-negative and then the sputum also grew out E coli and Proteus mirabilis. The E coli was resistant to ampicillin and sulbactam. The Proteus mirabilis was resistant to levofloxacin, and Bactrim and it was indeterminate with gentamicin and tobramycin. Dr. Daniels was consulted who initiated her on the correct antibiotic regimen. Dr. Vieyra was consulted secondary to the respiratory failure. She was on Tamiflu for the influenza B. She was on high-dose oxygen for a while. The ejection fraction on the echocardiogram was 55% when they were evaluating her heart failure. She did have some mild acute kidney injury. Over the time frame, she was weaned off of her pressors, ordered a swallow by speech therapy. She was started on pureed diet and advanced to a mechanical soft. Her IgG levels were checked by Dr. Daniels. Those were normal, so she did not require an infusion of IgG. By the , she was deemed appropriate for downgrading her level of care to either PVC or medical floor. So on 05/12/2019, she kept showing pleural effusion on chest x-ray so she had a thoracentesis, ultrasound-guided, and it was 300 mL that they pulled off. It was a yellowish color. There were no complications. After she had the thoracentesis, she improved on a daily basis. She is now appropriate for discharge. DISCHARGE VITAL SIGNS: Temperature 98.5 degrees, heart rate 74, respiratory rate 20, blood pressure 119/50, O2 saturation 92% on room air, 95% on 3 L nasal cannula. DISCHARGE LABORATORY DATA: White blood cells 11,000 hemoglobin 7.8, hematocrit 25.4, platelet count 395,000. Sodium 134, potassium 3.4, BUN 8, creatinine 0.6, glucose 109, calcium 8.0. IMAGING: On 05/06/2019 chest x-ray: Infiltrates in the left base with atelectasis and small left pleural effusion. Echocardiogram: Difficult study. No valvular abnormalities. Ejection fraction 55%. Mild left atrial enlargement. Right ventricular enlargement. On 05/08/2019 chest x-ray: Worsening left pleural effusion. On 05/09/2019 chest x-ray: Stable chest. Moderate- sized left pleural effusion. On 05/10/2019 chest x-ray: Worsening left pleural effusion, mild pulmonary edema in the right upper lobe. Chest CT: Increasing, possibly loculated, left pleural effusion, significant infiltrate throughout the left lung, mainly in the left lower lobe. Trace effusion. A small infiltrate in the right lung base. On 05/12/2019 chest x-ray: No postprocedural pneumothorax. On 05/12/2019 chest x-ray: No interval improvement. Moderate-sized left pleural effusion. On 04/23/2019 thoracentesis ultrasound: 300 mL removed on the left pleural effusion. No postop complication. Fluid was yellow. A 4 hour post-thoracentesis chest x- ray: Left pleural effusion. On 05/15/2019 chest x-ray: No change from prior. On 05/07/2019 EKG: Atrial fibrillation with RVR, rate was 126. Telemetry strips on the showed a normal sinus rhythm with a rate of 94. DISCHARGE MEDICATIONS: 1. Ambien 10 mg p.o. nightly. 2. Mirtazapine 15 mg p.o. nightly. 3. Pravachol 20 mg p.o. nightly. 4. Singular 10 mg p.o. nightly. 5. Neurontin 600 mg p.o. every 6 hours. 6. Albuterol Atrovent nebulizers every 6 hours. 7. Aspirin 81 mg p.o. daily. 8. Coreg 3.125 mg p.o. twice daily. 9. Ditropan 5 mg p.o. twice daily. 10. Metformin 500 mg p.o. twice daily. 11. Klonopin 0.5 mg p.o. twice daily. 12. Potassium chloride 20 mEq p.o. daily. 13. Lasix 20 mg p.o. daily. 14. Lexapro 20 mg p.o. daily. 15. [place] 7.5 one tablet p.o. every 8 hours p.r.n. 16. Phenergan 25 mg intramuscular every 6 to 8 hours p.r.n. 17. Lisinopril 5 mg p.o. daily. 18. Diclofenac 2 g topical every 12 hours p.r.n. 19. Zofran 4 mg p.o. every 6 to 8 hours p.r.n. 20. Antibiotics and Tamiflu will be ordered by Dr. Richard. 21. Currently, antibiotic regimen here is Rocephin 2 g IV q.24 hours around 3 o'clock in the daytime, vancomycin 1600 mg every 12 hours at 2 and 2. It also looks like she may be off the Tamiflu already. PHYSICIAN FOLLOWUPS: Dr. Vieyra, Dr. Daniels and her primary Birgit Charli. DISCHARGE ACTIVITY: As tolerated. Take care to prevent falls. DISCHARGE DIET: Mechanical soft. DISCHARGE INSTRUCTIONS: If your condition changes, contact the physician and/or return to the emergency department. Changes may include, but are not limited to, shortness of breath, increased fatigue, excessive bleeding, unexplained weight loss or gain, unmanageable pain, signs or symptoms of infection. DISCHARGE DISPOSITION: [facility]. Dictated by KELBY Juares for Jone Richard MD cc: KELBY Juares MD
== END 2019-05-17 15:54 | disposition home health service (06) | DRG 871 ==
LOC: ED 02:02 → SUATTDRO 06:15 → ICU 06:15 → 1N 05-14 16:30
PROVIDERS: ATTEND Internal Medicine

== ENCOUNTER 2019-05-24 12:23 | Inpatient (IN) ==
[2019-05-24] MEDS ORDERED: NS 1,000 ML IV ONE (13:26)
--- NOTE | 2019-05-24 13:38 | EKG Report ---
Test Performed on : 05/24/2019 1:15:23 PM Test Reason : low BP Blood Pressure : / mmHG Vent. Rate : 082 BPM Atrial Rate : 082 BPM P-R Int : 146 ms QRS Dur : 090 ms QT Int : 376 ms P-R-T Axes : 067 048 035 degrees QTc Int : 439 ms Normal sinus rhythm. with sinus arrhythmia. Nonspecific T wave abnormality Abnormal ECG When compared with ECG of 07-MAY-2019 00:33, Sinus rhythm. has replaced Atrial fibrillation. Vent. rate has decreased BY 44 BPM Nonspecific T wave abnormality now evident in Anterior leads Unconfirmed Result
--- NOTE | 2019-05-24 13:49 | Diag Imaging Result Doc PS360 ---
EXAM: CHEST-1 VIEW 05/24/2019 HISTORY: SOB TECHNIQUE: AP portable upright at 1331 COMMENT: There is a loculated pleural fluid collection on the left. This is actually somewhat smaller than on 05/15/2019. There is some slight shift of the mediastinum to the right. The left hemidiaphragm is somewhat elevated although this appearance may be due to subpulmonic fluid. The right lung is clear. There may be some atelectasis in the left lower lobe and lingula. IMPRESSION: Improved left pleural effusion. Electronically signed by Dallas Brown 05/24/2019 1:47 PM
[2019-05-24 13:54] LABS: BASO# 0.03 X1000 (0.0-0.2); BASO% 0.4 % (0.0-0.8); EOS# 0.19 X1000 (0.0-0.7); EOS% 2.3 % (0.0-10.0); HEMATOCRIT 30.1 % (37.0-47.0); HEMOGLOBIN 9.1 g/dL (12.0-16.0); IMM GRAN% 3.7 % (0.0-0.5); LYMPH# 1.19 X1000 (1.2-3.4); LYMPH% 14.7 % (20.5-51.1); MCH 28.6 PG (27-31); MCHC 30.2 g/dL (33-37); MCV 94.7 FL (81-99); MONO% 9.9 % (1.7-9.3); MPV 9.9 FL (7.4-10.4); NEUT# 5.61 X1000 (1.4-6.5); PLT 560 X1000 (130-400); RBC 3.18 XMIL (4.2-5.4); RDW 13.5 % (11.5-14.5); WBC 8.12 X1000 (4.8-10.8)
[2019-05-24 14:03] LABS: INR 1.15; PROTIME 14.9 Seconds (11.0-16.0)
[2019-05-24 14:05] LABS: PTT 43.1 Seconds (22.3-41.8)
[2019-05-24 14:13] LABS: ALB/GLOB RATIO 0.7; ALBUMIN 3.3 g/dL (3.5-5.0); CALCIUM 8.9 mg/dL (8.8-10.2); CREATININE 1.3 mg/dL (0.5-0.9); POTASSIUM 6.4 mmol/L (3.5-5.1); TOTAL BILIRUBIN 0.36 mg/dL (0.20-1.00); TOTAL PROTEIN 7.8 g/dL (6.3-8.3)
[2019-05-24] MEDS ORDERED: KAYEXALATE PO ONE (14:14)
[2019-05-24] MEDS ORDERED: D50W SYRINGE IV ONE (14:23)
[2019-05-24] MEDS ORDERED: HUMULIN R IV ONE (14:23)
[2019-05-24] MEDS ORDERED: SODIUM BICARBONATE 8.4% IV PUSH ONE (14:23)
[2019-05-24 15:47] LABS: URINE SOURCE CLEAN CATCH
--- NOTE | 2019-05-24 15:49 | PROVIDER DOCUMENTATION ---
This chart was entered by Lyndsay Abrams Scribe, acting as scribe for Myron Goldstein MD. HPI-Cardiac General - General Chief Complaint: B/P Problems Stated Complaint: COUGHING,FEVER,LOW BP Time Seen by Provider: 05/24/19 13:24 Source: patient Allergies/Adverse Reactions: Patient Allergies Allergy/AdvReac Type Severity Reaction Status Date / Time amoxicillin [From Augmentin] Allergy HIVES Verified 05/06/19 04:36 clavulanic acid Allergy HIVES Verified 05/06/19 04:36 [From Augmentin] Sulfa (Sulfonamide Allergy HIVES Verified 05/06/19 04:36 Antibiotics) Home Medications: Home Medication List Medication Instructions Recorded Confirmed Last Taken Type Aspirin [Adult Aspirin Regimen] 81 mg PO DAILY 05/06/19 05/06/19 Unknown History Carvedilol 3.125 mg PO BID 05/06/19 05/06/19 Unknown History Diclofenac 1% Gel [Voltaren 1% Gel] 2 g TOP Q12H PRN PRN 05/06/19 05/06/19 Unknown History Escitalopram [Lexapro] 20 mg PO DAILY 05/06/19 05/06/19 Unknown History Furosemide [Lasix] 20 mg PO DAILY 05/06/19 05/06/19 Unknown History Gabapentin 600 mg PO Q6HR 05/06/19 05/06/19 Unknown History Hydrocodone/Acetaminophen [[place] 1 tab PO PRN PRN 05/06/19 05/06/19 Unknown History 7.5-325 Tablet] Ipratropium/Albuterol Sulfate 3 ml INH Q6HR 05/06/19 05/06/19 Unknown History [Iprat-Albut 0.5-3(2.5) mg/3 ml] LISINOpril [Prinivil] 5 mg PO DAILY 05/06/19 05/06/19 Unknown History Metformin [Glucophage] 500 mg PO BID 05/06/19 05/06/19 Unknown History Mirtazapine 15 mg PO QHS 05/06/19 05/06/19 Unknown History Montelukast [Singulair] 10 mg PO QHS 05/06/19 05/06/19 Unknown History Ondansetron HCl [Zofran] 4 mg PO Q6-8H PRN PRN 05/06/19 05/06/19 Unknown History Oxybutynin [Ditropan] 5 mg PO BID 05/06/19 05/06/19 Unknown History Potassium Chloride [Klor-Con M20] 20 meq PO DAILY 05/06/19 05/06/19 Unknown History Promethazine [Phenergan] 25 mg IM Q6-8H PRN PRN MDD 75 05/06/19 05/06/19 Unknown History Zolpidem [Ambien] 10 mg PO QHS 05/06/19 05/06/19 Unknown History CefTRIAXONE [Rocephin] 2 gm IV DAILY #7 vial 05/17/19 Unknown Rx Clonazepam [Klonopin] 0.5 mg PO BID #60 05/17/19 Unknown Rx Daptomycin [Cubicin] 600 mg IV Q24H #7 vial 05/17/19 Unknown Rx Doxycycline 100 mg PO BID #20 tab 05/17/19 Unknown Rx Gabapentin [Neurontin] 300 mg PO TID PRN #60 cap 05/17/19 Unknown Rx Hydrocodone/APAP 7.5 mg/325 mg 1 ea PO Q6H PRN PRN #20 tab 05/17/19 Unknown Rx [[place]-7.5] Zolpidem [Ambien] 10 mg PO HS PRN PRN #20 tab 05/17/19 Unknown Rx - History of Present Illness-Cardiac Nature of Presenting Problem: 63yof presents to ED cc low blood pressure, fatigue, cough and fever. Pt reports she was recently in hospital due to having low b/p, flu and pneumonia and the [facility] where she lives has been holding her b/p meds since. Daughter is at bedside. Pt has hx of HTN, COPD, CHF. Onset/Duration: gradual Timing: still present Context/Activities at Onset: reports: light activity Modifying Factors: improves with: nothing History of arrythmia: reports: none Nitro Today/Relief: reports: no nitro taken today Aspirin Treatment Today: reports: no aspirin today Associated Symptoms: reports: fatigue. denies: shortness of breath Similar Symptoms Previously?: Yes Recently Seen Here or By Another Healthcare Provider: Yes Review of Systems - Adult - REVIEW OF SYSTEMS - ADULT Constitutional: reports: see HPI, chills, fever, fatique Eyes: reports: no symptoms reported Ears, Nose, Mouth & Throat: reports: no symptoms reported Cardiovascular: reports: see HPI, other (low blood pressure). denies: chest pain Respiratory: reports: see HPI, cough. denies: shortness of breath, wheezing Gastrointestinal: reports: no symptoms reported Genitourinary: reports: no symptoms reported Musculoskeletal: reports: no symptoms reported Integumentary: reports: no symptoms reported Neurological: reports: no symptoms reported Psychiatric: reports: no symptoms reported Endocrine: reports: no symptoms reported Hematologic/Lymphatic: reports: no symptoms reported Allergic/Immunologic: reports: no symptoms reported All Other Systems: Reviewed and Negative Past History - Adult - PAST MEDICAL HISTORY-ADULT Review of Records: reports: Nursing Assessment Review, Medications Reviewed, Social history reviewed & non-contributory. Major Childhood Illnesses: reports: denies history Cardiovascular: reports: CHF, HTN, hyperlipidemia Respiratory: reports: COPD Gastrointestinal: reports: GERD Obstetrical/Gynecological: reports: denies history Genitourinary: reports: denies history Musculoskeletal: reports: denies history Neurological: reports: Seizures/Epilepsy, other (dysthymic disorder) Psychiatric: reports: anxiety, other (insomnia) Endocrine/Immune: reports: Diabetes Other Conditions: reports: denies history - PRIOR SURGERIES/PROCEDURES Surgical/Procedure History: reports: hysterectomy - IMMUNIZATION STATUS Childhood Immunizations: See Nurse Assessment Flu Vaccine: See Nurse Assessment - FAMILY HISTORY Family History: other (non contributory due to age) Physical Exam-General - PHYSICAL EXAM-ADULT Initial Vital Signs Reviewed: Yes - CONSTITUTIONAL General Appearance: appears well, alert, no apparent distress. negative: anxious, combative - EYES Eyes: PERRL/EOMI, pink conjunctivae. negative: photophobia - HEAD, EARS, NOSE, MOUTH & THROAT HENMT: normocephalic/atraumatic, moist mucous membranes. negative: angioedema - NECK Neck: supple, normal inspection - RESPIRATORY Respiratory: chest non-tender, lungs clear, decreased breath sounds (bilateral). negative: normal breath sounds, rhonchi, wheezing - CARDIOVASCULAR Cardiovascular: normal peripheral pulses, regular rate, rhythm, no edema. negative: bradycardia, tachycardia - GASTROINTESTINAL (ABDOMEN) Abdominal Exam: normal bowel sounds, non tender, soft. negative: guarding, rebound - MUSCULOSKELETAL Extremity: normal inspection, no pedal edema, no calf tenderness, normal capillary refill. negative: deformity, swelling - SKIN Integumentary: normal color. negative: diaphoresis, jaundice - NEUROLOGIC Neurologic: assistant program director II-XII nml as tested, grossly normal, no motor/sensory deficits - PSYCHIATRIC Psych/Mental Status: normal mood/affect, oriented x 3. negative: anxious, disheveled - HEART Score HEART Score: History: Slightly Suspicious HEART Score: ECG: Non-Specific Repolarization Disturbance/LBBB/PM HEART Score: Age: 45-65 Years HEART Score: Risk Factors for Atherosclerotic Disease: 1 or 2 Risk Factors Progress - PLAN OF CARE/RESULTS Progress/Plan/Lab Results: Vital Signs - 8 hr 05/24/19 12:40 Temperature 98.3 F Pulse Rate 76 Respiratory Rate 20 Blood Pressure 79/52 O2 Sat by Pulse Oximetry 94 L 05/24/19 12:42 Influenza Screen - Final Nasopharyngeal Laboratory Results - last 24 hr 05/24/19 05/24/19 05/24/19 12:50 12:50 12:50 WBC RBC Hgb Hct MCV MCH MCHC RDW Std Deviation Plt Count MPV Immature Gran % (Auto) Neut % (Auto) Lymph % (Auto) [place] % (Auto) Eos % (Auto) Baso % (Auto) Immature Gran # (Auto) Neut # (Auto) Lymph # (Auto) [place] # (Auto) Eos # (Auto) Baso # (Auto) PT INR PTT (Actin FS) Sodium 132 L Potassium 6.4 H* Chloride 93 L Carbon Dioxide 25 Anion Gap 14 BUN 32 H Creatinine 1.3 H Estimated GFR/1.73 m2 41 BUN/Creatinine Ratio 25 Glucose 109 H Calculated Osmolality 272 Calcium 8.9 Total Bilirubin 0.36 AST 8 L ALT 6 L Alkaline Phosphatase 237 H Creatine Kinase 22 L Troponin T High Sens Vei-J-Ovlyoaefpvs Pept 398 H Total Protein 7.8 Albumin 3.3 L Globulin 4.5 Albumin/Globulin Ratio 0.7 Plasma Lactate 2.2 Urine Source 05/24/19 05/24/19 05/24/19 12:50 12:50 12:50 WBC 8.12 RBC 3.18 L Hgb 9.1 L Hct 30.1 L MCV 94.7 MCH 28.6 MCHC 30.2 L RDW Std Deviation 13.5 Plt Count 560 H MPV 9.9 Immature Gran % (Auto) 3.7 H Neut % (Auto) 69.0 Lymph % (Auto) 14.7 L [place] % (Auto) 9.9 H Eos % (Auto) 2.3 Baso % (Auto) 0.4 Immature Gran # (Auto) 0.30 H Neut # (Auto) 5.61 Lymph # (Auto) 1.19 L [place] # (Auto) 0.80 H Eos # (Auto) 0.19 Baso # (Auto) 0.03 PT 14.9 INR 1.15 PTT (Actin FS) 43.1 H Sodium Potassium Chloride Carbon Dioxide Anion Gap BUN Creatinine Estimated GFR/1.73 m2 BUN/Creatinine Ratio Glucose Calculated Osmolality Calcium Total Bilirubin AST ALT Alkaline Phosphatase Creatine Kinase Troponin T High Sens 27 H Exh-F-Bcrjwwtojed Pept Total Protein Albumin Globulin Albumin/Globulin Ratio Plasma Lactate Urine Source 05/24/19 15:41 WBC RBC Hgb Hct MCV MCH MCHC RDW Std Deviation Plt Count MPV Immature Gran % (Auto) Neut % (Auto) Lymph % (Auto) [place] % (Auto) Eos % (Auto) Baso % (Auto) Immature Gran # (Auto) Neut # (Auto) Lymph # (Auto) [place] # (Auto) Eos # (Auto) Baso # (Auto) PT INR PTT (Actin FS) Sodium Potassium Chloride Carbon Dioxide Anion Gap BUN Creatinine Estimated GFR/1.73 m2 BUN/Creatinine Ratio Glucose Calculated Osmolality Calcium Total Bilirubin AST ALT Alkaline Phosphatase Creatine Kinase Troponin T High Sens Yjz-A-Pascybrmcqi Pept Total Protein Albumin Globulin Albumin/Globulin Ratio Plasma Lactate Urine Source CLEAN CATCH Orders Category Date Time Status Cardiac Monitoring DIRECTED Care 05/24/19 13:19 Active NEWS Score 2-4:Order NEWS Lactate Series NOW Care 05/24/19 12:43 Active Oxygen Therapy- ED Nursing DIRECTED Care 05/24/19 13:19 Active Saline Loc NOW Care 05/24/19 13:19 Active Heart Healthy Diet Diet 05/24/19 15:44 Active CHEST-1 VIEW [RAD] Stat Exams 05/24/19 13:20 Completed BC [BLOOD CULTURE] [BLDCUL] Stat Lab 05/24/19 13:20 Uncollected CBC WITH ELECTRONIC DIFF [HEME] Stat Lab 05/24/19 12:50 Completed CK PROFILE [SP CHEM] Stat Lab 05/24/19 12:50 Completed COMPREHENSIVE METABOLIC PANEL [CHEM] Stat Lab 05/24/19 12:50 Completed Flu Swab [INFLUENZA SCREEN A/B] Stat Lab 05/24/19 12:42 Completed LACTATE, PLASMA [CHEM] Lab 05/24/19 12:50 Completed LACTATE, PLASMA [CHEM] Lab 05/24/19 15:45 Uncollected LACTATE, PLASMA [CHEM] Lab 05/24/19 18:45 Uncollected PRO B-NATRIURETIC PEPTIDE Stat Lab 05/24/19 12:50 Completed PROTIME WITH INR [COAG] Stat Lab 05/24/19 12:50 Completed PTT [COAG] Stat Lab 05/24/19 12:50 Completed TROPONIN T HIGH SENSITIVITY Stat Lab 05/24/19 12:50 Completed UA NIMS W/REFLEX CULT [URINALYSIS] Stat Lab 05/24/19 15:41 Results 0.9% Sodium Chloride Inj [Ns] 1,000 ml Med 05/24/19 13:26 Discontinued IV 999 mls/hr Dextrose 50% Syringe [D50w Syringe] Med 05/24/19 14:23 Discontinued 50 ml IV NOW ONE Insulin Human Regular [Humulin R] Med 05/24/19 14:23 Discontinued 10 unit IV NOW ONE Sodium Bicarbonate 8.4% Med 05/24/19 14:23 Discontinued 50 meq IV PUSH NOW ONE Sodium Polystyrene [Kayexalate] Med 05/24/19 14:14 Discontinued 30 gm PO NOW ONE CP/SOB/Palp >45 yrs of Age Stat Oth 05/24/19 13:19 Ordered EKG [EKG] Stat Ther 05/24/19 12:44 Draft Result Diagrams: 05/24/19 12:50 05/24/19 12:50 - EKG 1 Time of EKG reading by physician:: 13:15 EKG Read and Signed by:: Myron Goldstein EKG Interpretation (*Must complete 3 of following elements*): Abnormal (nonspecific T wave abnormality) Rate: 82 Rhythm: NSR w/sinus arrythmia Smoot: normal QRS: normal - CONSULTS/PCP/HOSPITALIST Notification #1 *Consult/PCP/Hospitalist*: Ruth/WOOL SHEARER Time Discussed: 15:47 Consult Disposition: Admit (to [facility]) Departure - Departure Date of Disposition Decision: 05/24/19 Time of Disposition Decision: 15:47 DIAGNOSIS: Hyperkalemia Hypotension Qualifiers: Hypotension type: unspecified hypotension type Qualified Code(s): I95.9 - Hypotension, unspecified Disposition: ADMITTED INPATIENT 09 Certified Medical Emergency: Emergent Condition: Fair Referrals and Follow-Ups: None,PCP [Primary Care Provider] - - Critical Care Note This patient required my direct & personal management of CC.: No Attestation - Physician/ MESHA Attestation Patient care was provided by Advanced Practice Provider:: No The physician spent face to face time with patient:: Yes Advanced Practice Provider documentation review:: Supervising physician onsite and consulted in the evaluation and care of this patient. The physician did have a face to face encounter with the patient. This chart was documented by the indicated scribe, (Lyndsay Abrams Scribe) and accurately reflects the services I performed and decisions made by me, Myron Goldstein MD, as attested by the provider's signature.
[2019-05-24 15:52] LABS: BILIRUBIN URINE NEGATIVE (NEGATIVE); BLOOD URINE TRACE (NEGATIVE); COLOR YELLOW; GLUCOSE URINE NEGATIVE (NEGATIVE); KETONE URINE NEGATIVE (NEGATIVE); LEUKOCYTES URINE TRACE (NEGATIVE); NITRITE URINE NEGATIVE (NEGATIVE); PROTEIN URINE NEGATIVE (NEGATIVE); SP GRAVITY URINE 1.013; TURBIDITY URINE CLEAR (CLEAR); UROBILINOGEN URINE NORMAL (NORMAL)
[2019-05-24 16:03] LABS: UR EPITHELIAL CELLS <10 /HPF (<10); URINE BACTERIA NEGATIVE /HPF; URINE WBC <10 /HPF (<10)
[2019-05-24 16:26] LABS: URINE YEAST NONE SEEN
[2019-05-24 16:27] LABS: URINE CASTS NONE SEEN; URINE CRYSTALS NONE SEEN; URINE SMALL ROUND CELLS NONE SEEN
[2019-05-24 16:35] LABS: URINE RBC <10 /HPF (<10)
[2019-05-24] MEDS ORDERED: MERREM 1 GM in NS 50 ML IV ONE (17:07)
[2019-05-24] MEDS ORDERED: LEVOPHED 8 MG in D5 1/2 NS 250 ML IV SCH (17:15)
[2019-05-24] MEDS ORDERED: VANCOMYCIN IV PER PHARMACY MISC SCH (17:15)
[2019-05-24] MEDS: LOVENOX SUBQ SCH (17:59)
[2019-05-24] MEDS: NS 1,000 ML IV SCH (18:12)
--- NOTE | 2019-05-24 18:48 | HISTORY AND PHYSICAL ---
ADDENDUM: I have seen and examined Ms. Yen today. Ms. Yen remains remarkably altered, very little responses except to extreme painful stimulation. There was no family member at the bedside at the time of the encounter. Per the ER report, Ms. Yen comes in because of fever, low blood pressure, coughing. Ms. Yen was just discharged from the hospital on May 17, 2019, where she was treated for influenza B, pneumonia, MSSA bacteremia. Was discharged with a PICC line and on Rocephin and vancomycin. Came back and was evaluated. Her vitals, she remains hypoxemic and very hypotensive. From her discharge medication list it seems Ms. Yen is on mirtazapine, Neurontin, Klonopin, Lexapro, [place], Phenergan, Zofran, all of which have potential to make her remarkably confused. PHYSICAL EXAMINATION: VITAL SIGNS: Blood pressure is 97/52, pulse of 73, respirations 20, temperature 98.3 degrees. LUNGS: Air entry is bilaterally reduced. A few crackles. She looks remarkably dry. ABDOMEN: Soft, nontender. EXTREMITIES: No pedal edema. INDUSTRIAL EDUCATION TEACHER: Patient is extremely lethargic. Will barely open the eyes to extreme painful stimulation, but moves extremities. LABORATORY DATA: Hemoglobin is 9.1, WBC is 8.3, platelet count is normal. Sodium is 132 with a potassium is 6.4, creatinine is 1.3 from normal on discharge. A chest x-ray shows improved left pleural effusion. ASSESSMENT: 1. Altered mental status, global encephalopathy with no focalization, most likely due to metabolic derangements, infectious or drug-induced. 2. Hypotension, presumably septic. However, medication side effect is also possible. Blood cultures have been done. We are going to fluid resuscitate and broaden the antibiotics. 3. Recently treated for Escherichia coli and Proteus pneumonia complicated with parapneumonic effusion. X-ray looks improved. However, there is also mention of possible loculation. We are going to continue with broad-spectrum IV antibiotics and repeat a chest x-ray within 2 to 3 days. If there is no improvement, I think we will have to re-sample the fluid. 4. Hyperkalemia. The patient was on multiple medications at home including lisinopril with potential to increase the potassium. This has been withheld. 5. Acute kidney injury, most likely from volume depletion. We will start the patient on fluids and re-evaluate her tomorrow with repeat labs. Please refer to the details of the history and physical that has been dictated by the HARVESTING MANAGER in the chart. I have discussed the plan with her. cc: Darrell Rush MD MTDD
[2019-05-24 19:27] LABS: UR AMPHETAMINES QUAL NONE DETECTED (NONE DETECT); UR BARBITUATES QUAL NONE DETECTED (NONE DETECT); UR BENZODIAZEPIN QUAL NONE DETECTED (NONE DETECT); UR CANNABINOIDS QUAL NONE DETECTED (NONE DETECT); UR COCAINE QUAL NONE DETECTED (NONE DETECT); UR METHADONE QUAL NONE DETECTED (NONE DETECT); UR OPIATES QUAL PRESUMPTIVE POSITIVE (NONE DETECT); UR OXYCODONE QUAL NONE DETECTED (NONE DETECT); UR PCP QUAL NONE DETECTED (NONE DETECT)
--- NOTE | 2019-05-24 19:27 | HISTORY AND PHYSICAL ---
PRIMARY CARE PROVIDER: Birgit Augustin. CHIEF COMPLAINT: "Cold." HISTORY OF PRESENT ILLNESS: Ms. Yen is a 63-year-old female who looks older than her stated age, recently discharged from our service on May 17 after influenza B pneumonia, urinary tract infection, hypoxemic respiratory failure, acute kidney injury, congestive heart failure, a MRSA bacteremia, and a left pleural effusion that required a thoracentesis. No family was at bedside. Came to the ED complaining of coughing, fever and low blood pressure. She is a long-term resident at [facility]. Workup in the ED revealed a potassium of 6.2, mild hyponatremia, renal insufficiency, and a loculated pleural effusion on the left that has actually improved. She did have a slight shift of her mediastinum on the right. Initial blood pressure was 79/52. She was hypoxemic and hyperkalemic. She did receive a hyperkalemic protocol. Started on a Levophed drip as well as broad-spectrum antibiotics with meropenem and vancomycin. The patient is somewhat altered. She does know her name, her date of . She knows she is at the hospital, however, you have to keep waking her up. She is extremely sleepy. We are going to check a head CT to rule out any CVA or other imponderables and she will be admitted to the ICU for further evaluation and treatment. PAST MEDICAL HISTORY: Recently discharged from our service secondary to influenza B, E. Coli urinary tract infection and pneumonia, MRSA bacteremia, left pleural effusion that required thoracentesis. PAST MEDICAL HISTORY: Of aspiration, tobacco use up until her most recent admission, COPD, diabetes mellitus, anxiety disorder, seizure disorder, peripheral neuropathy, anxiety and depressive disorder. PAST SURGICAL HISTORY: Hysterectomy. FAMILY HISTORY: Reviewed and noncontributory. SOCIAL HISTORY: She is a long-term resident at [facility]. She was a smoker up until at her previous admission. No alcohol or illicit drug use. She does have a daughter who was at the bedside upon admission. Now there is no family. ALLERGIES: To amoxicillin causes hives. Augmentin causes hives and sulfa causing hives. MEDICATIONS: Home medications are being compiled. REVIEW OF SYSTEMS: Hard to obtain secondary to the patient's mentation. PHYSICAL EXAMINATION: VITAL SIGNS: Temperature is 98.3 degrees, heart rate 76, respirations 20, blood pressure was initially 79/52, now 94/54. O2 is currently 97% on 2 L nasal cannula, initially 94. GENERAL: Ms. Yen is a 63-year-old female who is lying on the stretcher, does not appear to be any acute distress. However, she is very sleepy. You have to keep waking her up to answer any questions and she mumbles and did not really follow any commands. HEENT: Atraumatic, normocephalic. PERRL. NECK: Supple. Trachea midline. CARDIOVASCULAR: S1, S2 appreciated. No murmurs, gallops, rubs noted. RESPIRATORY: Lung sounds decreased entry way bilaterally. Could not really assess any murmurs, any rales, rhonchi or wheezes. GI: Appeared to be soft, nontender, nondistended. Positive bowel sounds 4 quadrants. EXTREMITIES: No pedal edema. Normal capillary refill. Bilateral pedal pulses were palpable. SKIN: Appears to be warm, dry, and intact. NEUROLOGIC: The patient did know her name, her date of . She knew she was at the hospital. However, she is somewhat altered. She does not stay awake long enough to answer a series of questions. You have to wake her up with each one, then she will mumble. We are going to check a head CT. DIAGNOSTIC DATA: EKG showed normal sinus rhythm with a sinus arrhythmia with a nonspecific T-wave abnormality. When compared to that of 05/20/2019, 82 beats per minute. Chest x-ray left improved left pleural effusion. LABORATORY DATA: White count 8, hemoglobin 9 and hematocrit 30, platelet count is 560,000. Sodium 132, potassium 6.4, BUN 32, creatinine 1.3 blood glucose is 109. Alkaline phosphatase 237. CK is 22, troponin 27. ProBNP is 398. Urinalysis is negative. Vancomycin level is less than 1.70. ASSESSMENT AND PLAN: 1. Altered mentation. We are checking a tox screen. Unsure if this is toxic or metabolic. We will do a head CT. 2. Hypotension, placed on Levophed drip. 3. Hyperkalemic received hyperkalemic treatment. We will recheck her potassium. 4. Mild hyponatremia. 5. Acute kidney injury. We will continue with aggressive IV hydration. 6. Left pleural effusion, improved since her last discharge 7. Recent admission and discharge for flu B, E. Coli pneumonia, urinary tract infection and MRSA bacteremia. We will continue on Vancomycin. She has received a dose of Merrem. 8. Diabetes mellitus type 2. We will place her on sliding scale with pattern blood sugars. 9. Acute hypoxemic respiratory failure. Continue supplemental O2. 10. Chronic obstructive pulmonary disease. Does not appear to be in exacerbation. 11. Further recommendation to follow physician evaluation, laboratory and diagnostic data. Dictated by KELBY Inman for Darrell Rush MD cc: Darrell Rush MD [facility]
[2019-05-24] MEDS ORDERED: VANCOMYCIN 1,800 MG in NS 250 ML IV ONE (20:00)
--- NOTE | 2019-05-24 21:03 | Diag Imaging Result Doc PS360 ---
EXAM: CT HEAD W/O CONTRAST INDICATION: encephalopathy TECHNIQUE: This exam was performed using automated exposure control, adjustment of mA or kV according to patient size, and/or use of iterative reconstruction technique. COMPARISON: None. FINDINGS: There is patchy low attenuation in the periventricular and subcortical white matter suggesting mild microangiopathy. There is no definite acute infarct given the limited sensitivity of CT versus MRI. There is no discrete intracranial mass, mass effect, or intracranial hemorrhage. The surrounding soft tissues and bony structures are essentially unremarkable. IMPRESSION: Chronic appearing white matter changes. No definite acute intracranial pathology by CT. Electronically signed by Lane Willard 05/24/2019 9:00 PM
[2019-05-24 22:19] LABS: AGAP 14; ALBUMIN 2.7 g/dL (3.5-5.0); BUN 27 mg/dL (8-22); CALCIUM 8.5 mg/dL (8.8-10.2); CHLORIDE 98 mmol/L (98-107); COSMO 283; CREATININE 0.9 mg/dL (0.5-0.9); ESTIMATED GFR > 60; GLUCOSE 109 mg/dL (70-104); PHOSPHORUS 4.2 mg/dL (2.7-4.5); POTASSIUM 4.3 mmol/L (3.5-5.1); SODIUM 139 mmol/L (136-145); TCO2 27 mmol/L (25-35)
[2019-05-24] MEDS: HUMALOG SUBQ SCH (22:39)
[2019-05-25] MEDS: HUMALOG SUBQ SCH ×4 (07:30→20:58)
[2019-05-25] MEDS: NS 1,000 ML IV SCH ×3 (10:01→13:31)
--- NOTE | 2019-05-25 13:26 | PROGRESS NOTE ---
DATE: 05/25/2019 SUBJECTIVE: I have seen and examined Ms. Yen today. Ms. Yen refers to be doing a lot better. Denies any new complaints. She is more awake, alert, and conversational. OBJECTIVE: Vital Signs: Blood pressure is 145/63, pulse of 78, respirations 16, temperature is 97.6 degrees. General: Ms. Yen is a 63-year-old, female. She is in bed. No distress. HEENT: Mucosa is pink and moist. Anicteric. Acyanotic. Neck: Supple. There is no JVD. Chest: There is good air entry bilaterally. No crepitations, no rhonchi. Cardiovascular: Regular rate and rhythm. No murmurs, no rubs, no gallops. GI: Abdomen is soft, nontender. Bowel sounds present. Extremities: No pedal edema. REFERRAL MANAGER: The patient is more awake, alert, follows commands. LABORATORY DATA: No CBC for this morning. Glucose is 145. The blood culture is still pending. The urine is showing gram-negative pearl. ASSESSMENT: 1. Altered mental status on presentation from global encephalopathy with no focalization. The patient's mentation has significantly improved. We think this is a combination of drug- induced and metabolic derangements. 2. Hypotension, resolved. 3. Escherichia Coli and Proteus mirabilis pneumonia associated with parapneumonic effusion. The patient is on antimicrobial therapy. 4. Hyperkalemia, resolved. 5. Acute kidney injury, resolved. 6. Clinical volume depletion, improved. 7. Gram-negative pearl urinary tract infection. The patient had a similar urinary tract infection on the last admission, and it was Escherichia coli. Unsure if that has that has changed to be an extended spectrum beta-lactamase, so we will keep Ms. Yen on meropenem for now. 8. Recently treated for methicillin-resistant staphylococcus aureus bacteremia. Repeat blood cultures were negative before she got discharged. We have gotten another blood culture since this admission. We are pending the report. The patient continues to be on vancomycin. In general, I think Ms. Yen is now more alert. I think most of her problems were medication induced. She was on multiple psychotropic medications at home, which have all been withheld. She is more alert this morning. She looks more hydrated. We are going to discontinue the Sanchez catheter, transfer her from the intensive care unit to the medical floor, get Physical Therapy to start working with her, and hopefully get her discharged in the next 24 to 48 hours. cc: Darrell Rush MD
[2019-05-25] MEDS: MERREM 1 GM in NS 50 ML IV SCH ×2 (13:31→22:51)
[2019-05-25 13:55] LABS: BASO# 0.03 X1000 (0.0-0.2); BASO% 0.5 % (0.0-0.8); EOS# 0.11 X1000 (0.0-0.7); EOS% 1.8 % (0.0-10.0); HEMATOCRIT 26.8 % (37.0-47.0); HEMOGLOBIN 8.1 g/dL (12.0-16.0); IMM GRAN# 0.21 X1000 (0.0-0.04); IMM GRAN% 3.5 % (0.0-0.5); LYMPH# 1.06 X1000 (1.2-3.4); LYMPH% 17.8 % (20.5-51.1); MCH 28.6 PG (27-31); MCHC 30.2 g/dL (33-37); MCV 94.7 FL (81-99); MONO# 0.68 X1000 (0.11-0.59); MONO% 11.4 % (1.7-9.3); MPV 9.5 FL (7.4-10.4); NEUT# 3.87 X1000 (1.4-6.5); PLT 366 X1000 (130-400); RBC 2.83 XMIL (4.2-5.4); WBC 5.96 X1000 (4.8-10.8)
[2019-05-25 14:16] LABS: AGAP 13; ALB/GLOB RATIO 0.5; ALBUMIN 2.4 g/dL (3.5-5.0); ALKALINE PHOSPHATASE 191 U/L (32-104); BUN 16 mg/dL (8-22); CALCIUM 8.7 mg/dL (8.8-10.2); CHLORIDE 98 mmol/L (98-107); COSMO 280; CREATININE 0.8 mg/dL (0.5-0.9); ESTIMATED GFR > 60; GLUCOSE 185 mg/dL (70-104); GOT 10 U/L (10-30); GPT < 5 U/L (10-36); POTASSIUM 4.5 mmol/L (3.5-5.1); SODIUM 137 mmol/L (136-145); TCO2 26 mmol/L (25-35); TOTAL BILIRUBIN 0.19 mg/dL (0.20-1.00); TOTAL PROTEIN 7.5 g/dL (6.3-8.3)
--- NOTE | 2019-05-25 14:51 | INFECTIOUS DISEASE PROGRESS NO ---
DATE: 05/25/2019 PRESENT ILLNESS: Ms. Yen was recently discharged from the hospital after being treated for a methicillin-resistant Staph aureus bacteremia. She completed her vancomycin on May 23, at which time the senior care took out her PICC line. She was also being treated for an Escherichia coli and Proteus aspiration pneumonia as well as an Escherichia coli urinary tract infection. Yesterday, she was seen in our office and was found to be extremely lethargic, confused, hypotensive and had a frequent, productive cough. We called the emergency room and had her family send her right over for admission, at which time, she was found to be extremely hyperkalemic with an acute kidney injury. MEDICATIONS: She has completed a 14 day treatment regimen with Rocephin and vancomycin, and is now back on the vancomycin along with meropenem 1 g IV every 8 hours. PHYSICAL EXAMINATION: Vital Signs: Temperature is 97.6 degrees, pulse rate 73, respiratory rate 24, blood pressure 142/54, O2 saturation is 100% on 2 L nasal cannula. General: This is a somewhat ill-appearing, middle-aged female. She is lying in bed, currently in no acute distress. HEENT: There are some areas of mild erythema noted to her face. Otherwise, atraumatic and normocephalic. Conjunctivae are pale. Oral mucous membranes are pink and dry. Neck: Supple. Trachea is midline. Cardiovascular: Heart rate and rhythm are regular. Normal sinus rhythm on the monitor. Respiratory: Lung sounds have some mild wheezes in the upper lobes. Diminished in the mid and bases. Abdomen: Soft, round and nontender. Bowel sounds are active. Neurologic: She is awake, alert and more appropriate today with minimal confusion to date and time. There is generalized lower extremity weakness. LABORATORY AND X-RAY: Yesterday her white count was 8.12, hemoglobin 9.1, platelet count 560,000. Creatinine 0.9. Estimated GFR greater than 60. Total bilirubin 0.36, AST 8, ALT 6, alkaline phosphatase 237. Creatine kinase 22. Chest x-ray yesterday showed improved left pleural effusion. Head CT showed no definite acute intracranial pathology. An EKG showed sinus arrhythmia on the unconfirmed report. There is a gram-negative pearl growing in her urine. Blood cultures are pending. ASSESSMENT AND PLAN: Ms. Yen is being treated after readmission to the hospital for confusion, hypotension and excessive cough with sputum. Since arrival to the hospital, it appears she has not had any more sputum. She has completed the treatment for her Methicillin-resistant Staphylococcus aureus bacteremia. For now, a set of blood cultures is pending. A recheck of her flu swab is negative for A and B whereas she previously did have a positive swab. There is blood work already in for tomorrow. I will discuss the case with Dr. Rush and continue meropenem and vancomycin as ordered. COMORBIDITIES: Include cigarette smoking with COPD, diabetes mellitus, gastroesophageal reflux disease, seizure disorder, and she is a senior care resident. Dictated by KELBY Lowry for Darrell Rush MD cc: Darrell Rush MD I have seen and examined Ms Yen today. Anti microbials have been reviewed. I agree with the above note and plan. I have discussed plan with SQL SSRS DEVELOPER. MARLENI
[2019-05-25] MEDS: LOVENOX SUBQ SCH (16:46)
[2019-05-25] MEDS: TYLENOL PO PRN (19:49)
[2019-05-25] MEDS ORDERED: VANCOMYCIN 1,200 MG in NS 250 ML IV SCH (20:00)
[2019-05-26] MEDS: NS 1,000 ML IV SCH ×2 (00:29→11:27)
[2019-05-26] MEDS: MERREM 1 GM in NS 50 ML IV SCH (04:47)
[2019-05-26] MEDS: TYLENOL PO PRN ×2 (04:47→15:38)
[2019-05-26] MEDS: HUMALOG SUBQ SCH ×2 (07:48→11:27)
[2019-05-26 08:02] LABS: ESTIMATED GFR > 60
[2019-05-26 08:03] LABS: AGAP 10; ALB/GLOB RATIO 0.6; ALBUMIN 2.8 g/dL (3.5-5.0); ALKALINE PHOSPHATASE 185 U/L (32-104); BUN 10 mg/dL (8-22); CALCIUM 8.7 mg/dL (8.8-10.2); CHLORIDE 102 mmol/L (98-107); COSMO 279; CREATININE 0.6 mg/dL (0.5-0.9); GLUCOSE 102 mg/dL (70-104); GOT 10 U/L (10-30); GPT < 5 U/L (10-36); MAGNESIUM 1.6 mg/dL (1.5-2.7); PHOSPHORUS 3.1 mg/dL (2.7-4.5); POTASSIUM 3.9 mmol/L (3.5-5.1); SODIUM 140 mmol/L (136-145); TCO2 28 mmol/L (25-35); TOTAL BILIRUBIN 0.19 mg/dL (0.20-1.00); TOTAL PROTEIN 7.3 g/dL (6.3-8.3)
[2019-05-26 08:29] LABS: HEMATOCRIT 26.4 % (37.0-47.0); MCH 28.4 PG (27-31); MCHC 30.3 g/dL (33-37); MCV 93.6 FL (81-99); MPV 9.7 FL (7.4-10.4); RBC 2.82 XMIL (4.2-5.4); RDW 12.8 % (11.5-14.5); WBC 5.84 X1000 (4.8-10.8)
[2019-05-26 11:31] VITALS: BP 133/74
--- NOTE | 2019-05-26 12:02 | DISCHARGE SUMMARY ---
ADMISSION DATE: 05/24/2019 DISCHARGE DATE: 05/26/2019 CONSULTATION DURING THIS ADMISSION: Infectious Disease was consulted. INVASIVE PROCEDURES DONE DURING THIS ADMISSION: None. IMAGING STUDIES OF SIGNIFICANCE: 1. A chest x-ray did show improved left pleural effusion. 2. CT scan of the head showed chronic-appearing white matter changes. ADMISSION DIAGNOSES: 1. Altered mental status. 2. Hypotension. 3. Recently treated for Escherichia coli and Proteus pneumonia. 4. Hyperkalemia. 5. Acute kidney injury. DIAGNOSES AT THE TIME OF DISCHARGE: 1. Altered mental status on presentation from global encephalopathy with no focalization. Etiology was multifactorial including a combination of drug-induced, metabolic and infectious encephalopathies. 2. Hypotension, presumably drug-induced. 3. Recently treated for Escherichia coli and Proteus mirabilis pneumonia associated with parapneumonic effusion. 4. Hyperkalemia, resolved. 5. Acute kidney injury, resolved. 6. Clinical volume depletion, improved. 7. Acute kidney injury, resolved. 8. Urinary tract infection with Proteus mirabilis. 9. Recently treated for Methicillin-resistant Staphylococcus aureus bacteremia. Subsequent blood cultures have all been completely negative. DISCHARGE MEDICATIONS: 1. Aspirin 81 mg p.o. daily. 2. Lexapro 20 mg p.o. daily. 3. Lisinopril 5 mg p.o. daily. 4. Metformin 500 b.i.d. 5. Mirtazapine 50 mg p.o. at bedtime. 6. Singulair 10 mg p.o. at bedtime. 7. Oxybutynin 10 mg p.o. at bedtime. 8. Carvedilol 3.125 b.i.d. 9. Keflex 500 b.i.d. 10. Tylenol. 11. Gabapentin 200 three times per day. Medications that have been discontinued: Daptomycin, ceftriaxone, IV antibiotics has been discontinued. Patient has completed a course of treatment. [place] and Klonopin have all also been discontinued. Patient will need to follow up with her primary care to reassess the need for these medications. PRESENTING COMPLAINT: Cold. HISTORY OF PRESENTING COMPLAINT: Ms. Yen is a 63-year-old female who was recently discharged from the hospital after she was treated for influenza B, pneumonia, urinary tract infection, respiratory failure, MRSA bacteremia. Presented again because of feeling cold, some shortness of breath. Went to the Infectious Disease office, was found to be remarkably hypotensive, also hypoxemic, so she was referred to the emergency room for further medical care. HOSPITAL COURSE: Ms Yen was found to be remarkably hypotensive on admission. All her home blood pressure medications were withheld. She was fluid resuscitated. Creatinine had also increased slightly, so we thought she was volume depleted. She was started on IV fluids. Over the course of the hospital stay, she improved. The creatinine normalized. Vitals also became stable. Her cultures came back with a blood culture 48 hours negative. Flu was negative. Urine showed a Proteus mirabilis, which was the same pathogen that was in her sputum a couple of weeks ago. She was evaluated by Infectious Disease. We think that she has completed the course for the IV antimicrobial therapy. She is going to be discharged on p.o. Keflex for the Proteus mirabilis in the urine. Ms Yen was on multiple psychotropic medications at home, which we think could have compounded her hypotension on admission. These medications have all been withheld and we have advised that she follows up with her primary care doctor to reassess the need for them. We have also cut back on her gabapentin from 600 to just 200 b.i.d. All the discharge instructions discussed with her. She voiced understanding. TIME SPENT FOR DISCHARGE: 35 minutes. cc: MD MARLENI Fitzpatrick
[2019-05-26] MEDS ORDERED: IMODIUM PO ONE (17:02)
== END 2019-05-26 17:21 | disposition home or self-care (01) | DRG 640 ==
LOC: ED 12:23 → ICU 17:21 → 3N 05-26 04:18
PROVIDERS: ATTEND Internal Medicine